=== PATIENT | female | born 1965 | race Hispanic/Latino ===

== ENCOUNTER 2020-08-02 09:26 | Emergency (ER) | payer OTHER ==
--- NOTE | 2020-08-02 10:06 | ER ---
Nurse's Notes [facility] Name: Mimi Hanson Age: 55 yrs Sex: Female : 1965 Arrival Date: 08/02/2020 Time: 09:37 Bed 18 Private MD: Diagnosis: Other serum reaction due to vaccination Presentation: 08/02 09:38 Chief complaint: EMS states: pt received 1st Covid vaccine yseterday at [facility]. Pt became bw short of breath last night and worsening this AM. Pt c/o body aches, headache, and SOB. All VSS stable on arrival. 02 100% on RA. Coronavirus screen: Client presents with at least one sign or symptom that may indicate coronavirus-19. Standard/surgical mask placed on the client. Ebola Screen: No symptoms or risks identified at this time. Initial Sepsis Screen: Does the patient meet any 2 criteria? No. Patient's initial sepsis screen is negative. Does the patient have a suspected source of infection? No. Patient's initial sepsis screen is negative. Risk Assessment: Do you want to hurt yourself or someone else? Patient reports no desire to harm self or others. Onset of symptoms was August 02, 2020. 09:38 Method Of Arrival: EMS: [facility] bw 09:38 Acuity: RADHA 3 bw Triage Assessment: 09:42 General: Appears in no apparent distress. uncomfortable, Behavior is calm, cooperative, bw appropriate for age. Pain: Complains of pain in head, back, shoulders, arms. Body aches. EENT: No deficits noted. No signs and/or symptoms were reported regarding the EENT system. Neuro: No deficits noted. Reports headache since Last night. Cardiovascular: No deficits noted. Respiratory: No deficits noted. Reports shortness of breath cough that is Airway is patent Breath sounds are clear bilaterally. Onset: The symptoms/episode began/occurred yesterday, the patient has mild shortness of breath. GI: No deficits noted. : No deficits noted. Derm: No deficits noted. No signs and/or symptoms reported regarding the dermatologic system. Musculoskeletal: No deficits noted. No signs and/or symptoms reported regarding the musculoskeletal system. 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 - Social history:: Smoking status: Patient denies any tobacco usage or history of. Screenin:45 Abuse screen: Denies threats or abuse. Nutritional screening: No deficits noted. Tuberculosis screening: No symptoms or risk factors identified. Fall Risk None identified. Assessment: 09:44 Reassessment: See triage assessment. bw 10:39 Reassessment: Patient appears in no apparent distress at this time. Patient and/or jd3 family updated on plan of care and expected duration. Pain level reassessed. Patient is alert, oriented x 3, equal unlabored respirations, skin warm/dry/pink. Patient states feeling better. Vital Signs: 09:38 BP 119 / 57; Pulse 76; Resp 16; Temp 98.0; Pulse Ox 100% on R/A; Weight 57.61 kg; bw Height 5 ft. 5 in. (165.10 cm); Pain 4/10; 10:40 BP 122 / 61; Pulse 70; Resp 15 S; Pulse Ox 99% on R/A; jd3 09:38 Body Mass Index 21.13 (57.61 kg, 165.10 cm) ED Course: 09:37 Patient arrived in ED. ss 09:38 Lisy Perry, NATALIE is Primary Nurse. bw 09:41 Triage completed. bw 09:42 Daniel Shaffer PA is PHCP. jr8 09:42 Preethi Christensen MD is Attending Physician. jr8 09:42 Arm band placed on right wrist. bw 09:45 Patient has correct armband on for positive identification. Bed in low position. Call light in reach. Side rails up X2. Pulse ox on. NIBP on. Warm blanket given. 09:45 No provider procedures requiring assistance completed. bw 10:39 Patient did not have IV access during this emergency room visit. jd3 Administered Medications: 10:23 Drug: Zofran (Ondansetron) 4 mg Route: PO; bw 10:39 Follow up: Response: No adverse reaction; Medication administered at discharge. jd3 10:23 Drug: Tylenol 1000 mg Route: PO; 10:39 Follow up: Response: No adverse reaction; Medication administered at discharge. jd3 Outcome: 10:06 Discharge ordered by . flakita 10:39 Discharged to home ambulatory, with family. jd3 10:39 Condition: stable 10:39 Discharge instructions given to patient, Instructed on discharge instructions, follow up and referral plans. medication usage, Demonstrated understanding of instructions, follow-up care, medications, Prescriptions given X 1. 10:40 Patient left the ED. jd3 Signatures: Melissa Aguirre RN RN Daniel Shaffer PA PA jrJesu Trimble RN RN jd3 Webb, Bethany, RN RN Corrections: (The following items were deleted from the chart) 09:44 09:42 LMP N/A - Irregular menses [facility] 09:46 09:44 Reassessment: See triage note. [facility]
--- NOTE | 2020-08-02 10:06 | EDPHYS ---
Physician Documentation [facility] Name: Mimi Hanson Age: 55 yrs Sex: Female : 1965 Arrival Date: 08/02/2020 Time: 09:37 Bed 18 Private MD: ED Physician Preethi Christensen HPI: 08/02 10:07 This 55 yrs old Female presents to ER via EMS with complaints of chills, jr8 nausea . 10:07 Patient stated that she received first dose of COVID-19 vaccine from [facility] system jr8 yesterday. Does not know which vaccine type it was. Today started to have headache, chills, nausea, fatigue, and felt mildly short of breath. Came in to ED for evaluation . Severity of symptoms: At their worst the symptoms were mild in the emergency department the symptoms are unchanged. The patient has not experienced similar symptoms in the past. It is unknown whether or not the patient has recently seen a physician. 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 - Social history:: Smoking status: Patient denies any tobacco usage or history of. ROS: 10:07 Eyes: Negative for injury, pain, redness, and discharge, Neck: Negative for injury, jr8 pain, and swelling, Cardiovascular: Negative for chest pain, palpitations, and edema, Back: Negative for injury and pain, MS/Extremity: Negative for injury and deformity, Skin: Negative for injury, rash, and discoloration. 10:07 Constitutional: Positive for body aches, chills, fatigue. 10:07 ENT: Positive for sore throat. 10:07 Respiratory: Positive for shortness of breath, Negative for cough, dyspnea on exertion, orthopnea, sputum production, wheezing. 10:07 Abdomen/GI: Positive for nausea, Negative for abdominal pain, vomiting, diarrhea. 10:07 Neuro: Positive for headache. Exam: 10:07 Constitutional: This is a well developed, well nourished patient who is awake, alert, jr8 and in no acute distress. Eyes: Pupils equal round and reactive to light, extra-ocular motions intact. Lids and lashes normal. Conjunctiva and sclera are non-icteric and not injected. Cornea within normal limits. Periorbital areas with no swelling, redness, or edema. ENT: Nares patent. No nasal discharge, no septal abnormalities noted. Tympanic membranes are normal and external auditory canals are clear. Oropharynx with no redness, swelling, or masses, exudates, or evidence of obstruction, uvula midline. Mucous membranes moist. Neck: Trachea midline, no thyromegaly or masses palpated, and no cervical lymphadenopathy. Supple, full range of motion without nuchal rigidity, or vertebral point tenderness. No Meningismus. Cardiovascular: Regular rate and rhythm with a normal S1 and S2. No gallops, murmurs, or rubs. Normal PMI, no JVD. No pulse deficits. Respiratory: Lungs have equal breath sounds bilaterally, clear to auscultation and percussion. No rales, rhonchi or wheezes noted. No increased work of breathing, no retractions or nasal flaring. Abdomen/GI: Soft, non-tender, with normal bowel sounds. No distension or tympany. No guarding or rebound. No evidence of tenderness throughout. Back: No spinal tenderness. No costovertebral tenderness. Full range of motion. Skin: Warm, dry with normal turgor. Normal color with no rashes, no lesions, and no evidence of cellulitis. MS/ Extremity: Pulses equal, no cyanosis. Neurovascular intact. Full, normal range of motion. Neuro: Awake and alert, GCS 15, oriented to person, place, time, and situation. Cranial nerves II-XII grossly intact. Motor strength 5/5 in all extremities. Sensory grossly intact. Cerebellar exam normal. Normal gait. Vital Signs: 09:38 BP 119 / 57; Pulse 76; Resp 16; Temp 98.0; Pulse Ox 100% on R/A; Weight 57.61 kg; bw Height 5 ft. 5 in. (165.10 cm); Pain 4/10; 10:40 BP 122 / 61; Pulse 70; Resp 15 S; Pulse Ox 99% on R/A; jd3 09:38 Body Mass Index 21.13 (57.61 kg, 165.10 cm) bw MDM: 09:42 Patient medically screened. jr8 10:03 Data reviewed: vital signs, nurses notes, and as a result, I will discharge patient. jr8 Data interpreted: Pulse oximetry: on room air is 100 %. Interpretation: normal. Counseling: I had a detailed discussion with the patient and/or guardian regarding: the historical points, exam findings, and any diagnostic results supporting the discharge/admit diagnosis, the need for outpatient follow up, a family practitioner, to return to the emergency department if symptoms worsen or persist or if there are any questions or concerns that arise at home. ED course: Discussed with patient that VS are stable. Most likely experiencing normal side effects to the vaccine as she was administered it yesterday. Would wait and treat symptoms for next 48 hours. If she were to worsen or not improve to come back at that time for reevaluation. Patient good with this . Administered Medications: 10:23 Drug: Zofran (Ondansetron) 4 mg Route: PO; bw 10:39 Follow up: Response: No adverse reaction; Medication administered at discharge. jd3 10:23 Drug: Tylenol 1000 mg Route: PO; bw 10:39 Follow up: Response: No adverse reaction; Medication administered at discharge. jd3 Disposition: 19:41 Co-signature as Attending Physician, Preethi Christensen MD. ma2 Disposition: 08/02/20 10:06 Discharged to Home. Impression: Other serum reaction due to vaccination. - Condition is Stable. - Discharge Instructions: COVID-19. - Prescriptions for Zofran 4 mg Oral Tablet - take 1 tablet by ORAL route every 12 hours As needed; 20 tablet. - Medication Reconciliation Form, Thank You Letter, Antibiotic Education, Prescription Opioid Use form. - Follow up: Private Physician; When: 2 - 3 days; Reason: Recheck today's complaints, Continuance of care, Re-evaluation by your physician. - Problem is new. - Symptoms have improved. - Notes: Tylenol and/or motrin for bodyaches, chills, fevers Drink plenty of fluids Rest Signatures: Daniel Shaffer PA PA jr8 Jesu Gonzalez RN RN jd3 Alzahri, Mohammad, MD MD ma2 Lisy Perry RN RN bw Corrections: (The following items were deleted from the chart) 10:40 10:06 08/02/2020 10:06 Discharged to Home. Impression: Other serum reaction due to jd3 vaccination. Condition is Stable. Forms are Medication Reconciliation Form, Thank You Letter, Antibiotic Education, Prescription Opioid Use. Follow up: Private Physician; When: 2 - 3 days; Reason: Recheck today's complaints, Continuance of care, Re-evaluation by your physician. Problem is new. Symptoms have improved. jr8
[2020-08-02] MEDS ORDERED: ONDANSETRON 4 MG (ODT) TAB ONE (10:37)
[2020-08-02] MEDS ORDERED: ACETAMINOPHEN 500 MG TAB ONE (10:37)
[2020-08-02 11:01] VITALS: BP 119/57; TEMP 98; O2SAT 100
== END 2020-08-02 10:40 | disposition home or self-care (01) ==
LOC: ER 09:26
DX: T80.62XA Other serum reaction due to vaccination, initial encounter (principal); T50.B95A Adverse effect of other viral vaccines, initial encounter; I10 Essential (primary) hypertension
CPT/HCPCS: 99284

== ENCOUNTER 2021-08-03 23:33 | Emergency (ER) | payer OTHER ==
--- OUTSIDE RECORDS SUMMARY | 2021-08-03 23:35 | XMS REPORT | Continuity of Care Document ---
:1965 Author Organization [facility] t Address [address] [place] [address] [address]. [address] [place] [address] Care Team Providers Name Role Phone LENIN LEWIS Primary Care Physician Unavailable Ritu CALDERON S Attending Clinician Rosie CUENCA Attending Clinician Unavailable Rosie CUENCA Admitting Clinician Unavailable Payers Payer Name Policy Type Policy Number Effective Date Expiration Date S ource Problems Condition Condition Condition Status Onset Resolution Last Treating Co mments Source Name Details Category Date Date Treatment Clinician Date No known No known Disease Unive rs active active ity of problems problems [facility] Allergies, Adverse Reactions, Alerts Allergy Allergy Status Severity Reaction(s) Onset Inactive Treating Comm ents Source Name Type Date Date Clinician NO KNOWN Drug Active Univers ALLERGIE Class it of S [facility] Social History Social Habit Start Date Stop Date Quantity Comments [facility] Smoking Status Start Date Stop Date Source Unknown if ever smoked [facility] y [facility] Medications Ordered Filled Start Stop Current Ordering Indication Dosage Frequency Signature Comments Components Source Medication Medication Date Date Medication? Clinician (SIG) Name Name No known No Univers medications [facility] Vital Signs Vital Name Observation Time Observation Value Comments Source Systolic blood 2019-08-11 18:00:00 135 mm[Hg] Univer sity of pressure [facility] Diastolic blood 2019-08-11 18:00:00 70 mm[Hg] Unive rsity of [facility] Heart rate 2019-08-11 18:00:00 64 /min Universi ty [facility] Respiratory rate 2019-08-11 18:00:00 12 /min [facility] Oxygen saturation in 2019-08-11 18:00:00 100 /min [facility] Arterial blood by [facility] Pulse oximetry Branch Body temperature 2019-08-11 16:17:00 37.11 Barbara [facility] Body height 2019-08-11 16:17:00 152.4 cm [facility] Body weight 2019-08-11 16:17:00 58.06 kg [facility] BMI 2019-08-11 16:17:00 25.00 kg/m2 [facility] Procedures Procedure Date / Time Performing Clinician Source Performed XR CHEST 1 VW 2019-08-11 16:56:28 Alfredo Cuenca [facility] TROPONIN I 2019-08-11 16:44:00 Alfredo Cuenca [facility] COMP. METABOLIC PANEL 2019-08-11 16:44:00 Alfredo Cuenca [facility] ([id number]) [facility] CBC WITH DIFFERENTIAL 2019-08-11 16:44:00 Alfredo Cuenca [facility] EKG-12 LEAD 2019-08-11 16:36:30 Alfredo Cuenca [facility] NOTICE OF PRIVACY 2019-08-11 16:10:29 Doctor Unassigned, No Univ [facility] PRACTICES Name Medical Branch CONSENT/REFUSAL FOR 2019-08-11 16:10:12 [facility], [facility] Name [facility] Encounters Start End Encounter Admission Attending Care Care Encounter Source Date/Time Date/Time Type Type Clinicians Facility Department ID 2019-08-11 2019-08-11 Emergency [facility] [id number] Univers 11:12:26 13:44:00 Alfredo Velez [facility] [id number] [facility] [id number] [facility] [id number] [facility] 084 Branch 2019-08-11 2019-08-11 Emergency X [facility] ERT [id number] Univers 11:12:26 13:44:00 ALFREDO [facility] Results Test Description Test Time Test Comments Results Result Comments Source VITAMIN B-12 2021-07-12 04:44:18 Test Item Value Reference Range Interpretation Comme nts VITAMIN B-12 (test code = 2840) >2000 PG/ML 200-950 H [id number] 03:17:13 Test Item Value Reference Range Interpretation Comments RPR RESULT (test NON-REACTIVE NON-REACTIVE code = 3501) RPR TITER (test NOT INDIC. NOT INDIC. UNLES S OTHERWISE code = 3500) TITER INDICATED, ALL TESTING PERFORMED [facility]. [address] [place] [address] 78 4 LABORATORY DI GLENNA: Oswald OLIVARES [id number] CAP ACCREDITATION N O. [id number] CBC W/AUTO DIFF WITH [id number] 02:38:15 Test Item Value Reference Range Interpretation Comments WBC (test code = 4.8 K/UL 3.5-11.0 1001) RBC (test code = 4.17 M/UL 3.80-5.40 1002) HEMOGLOBIN (test code 13.1 G/DL 11.5-15.5 = 1003) HEMATOCRIT (test code 37.7 % 34.0-45.0 = 1004) MCV (test code = 90.4 fL 80.0-99.0 1005) MCH (test code = 31.4 PG 25.0-33.0 1006) MCHC (test code = 34.7 G/DL 31.0-36.0 1007) RDW (test code = 12.8 % 11.5-15.0 1038) NEUTROPHILS (test 37.3 % code = 1008) LYMPHOCYTES (test 50.5 % code = 1010) MONOCYTES (test code 8.9 % = 1011) EOSINOPHILS (test 2.1 % code = 1012) BASOPHILS (test code 1.0 % = 1013) IMMATURE GRANULOCYTES 0.2 % (test code = 1036) NUCLEATED RBCS (test 0.0 /100 See_Comment [Autom ated code = 1065) WBC'S message] The sy stem which generated this result transmitted reference range : 0.0. The refere nce range was not u sed to interpret th is result as normal/abnormal . PLATELET COUNT (test 355 K/UL 130-400 code = 1015) ABSOLUTE NEUTROPHILS 1.79 K/UL 1.50-7.50 (test code = 1066) ABSOLUTE LYMPHOCYTES 2.43 K/UL 1.00-4.00 (test code = 1067) ABSOLUTE MONOCYTES 0.43 K/UL 0.20-1.00 (test code = 1068) ABSOLUTE EOSINOPHILS 0.10 K/UL 0.00-0.50 (test code = 1040) ABSOLUTE BASOPHILS 0.05 K/UL 0.00-0.20 (test code = 1069) ABS IMMATURE 0.01 K/UL 0.00-0.10 GRANULOCYTES (test code = 1020) ABS NUCLEATED RBCS 0.00 K/UL 0.00-0.11 (test code = 45793) LIPID [id number] 03:57:42 Test Item Value Reference Range Interpretation Comments CHOLESTEROL (test 288 MG/DL <200 H code = 2210) TRIGLYCERIDES (test 122 MG/DL <150 code = 2232) HDL CHOLESTEROL (test 103 MG/DL >39 code = 2220) CALC LDL CHOL (test 161 MG/DL <100 H NOTE: C ALCULATED LDL code = 2237) IS BASED ON RACHELL-YUEN METHOD WHICHINCLUDES ADJUSTABLE TRIGLYCERIDE:VL DL CHOLESTEROL RAT IO.THIS FACTOR VARIES B Y MEASURED TRIGLY CERIDE AND NON-HDLCHOL ESTEROL CONCENTRATIONS WITH INCREASED CALCU LATED LDL SEENIN HIGH ER TRIGLYCERIDE OR LOWER NON-HDL SPECIME NS. FOR MOREINFORMATION , SEE CLIENT ANNOUNCE MENT AT [email or web address] RATIO LDL/HDL 1.56 RATIO <3.22 (test code = 2238) COMPREHENSIVE METABOLIC [id number] 03:57:42 Test Item Value Reference Range Interpretation Comments GLUCOSE (test code = 99 MG/DL 70-99 2216) BUN (test code = 15 MG/DL 10-27) CREATININE (test 0.77 MG/DL 0.60-1.30 code = 2214) eGFR (2020 CKD-EPI) 92 >60 (test code = 03524) ML/MIN/1.73 CALC BUN/CREAT (test 19 RATIO 11-04 code = 2235) SODIUM (test code = 141 MEQ/L 844-351 5210) POTASSIUM (test code 4.5 MEQ/L 3.5-5.4 = 2227) CHLORIDE (test code 103 MEQ/L 95-107 = 2214) CARBON DIOXIDE (test 24 MEQ/L 19-31 code = 2206) CALCIUM (test code = 10.0 MG/DL 8.5-10.5 2208) PROTEIN, TOTAL (test 7.8 G/DL 6.1-8.3 code = 2229) ALBUMIN (test code = 4.8 G/DL 3.5-5.2 2200) CALC GLOBULIN (test 3.0 G/DL 1.9-3.7 code = 2240) CALC A/G RATIO (test 1.6 RATIO 1.0-2.6 code = 2234) BILIRUBIN, TOTAL 0.5 MG/DL See_Comment [Automated message] (test code = 2206) The [employer] which generated this result transmitted ref erence range: <=1.2. T he reference range was not used to int erpret this result as normal/abnormal . ALKALINE PHOSPHATASE 63 U/L 40-133 (test code = 2203) AST (test code = 20 U/L 9-40 2217) ALT (test code = 25 U/L 5-40 UNLE SS 2218) OTHERWISE INDIC ATED, ALL TESTING PER FORMED ATCLINICAL PATH [facility]. [address] [place] [address] LABORATORY DIRE CTOR: SHAMA SORIANO M.D. CLIA NUMBER [id number] CAP ACCREDITATION N O. [id number] TROPONIN [id number] 17:36:00 Test Item Value Reference Range Interpretation Comments TROPONIN I (test 0.003 ng/mL See_Comment [Automated code = 2253210667) message] The system which generated this result transmitted reference range : <=0.034. The reference range was not used to interpret this result as normal/abnormal . FRANKI (test code = Equal or Less than FRANKI) 0.034 ng/ml---Normal ?Note: Cardiac troponin begins to rise 3-4 hours after the onset of ischemia. Repeat in 4-6 hours if the sample was drawn within 3-4 hours of the onset of the symptom and found normal. Between 0.035 and 0.120 ng/mL--- Borderline. Questionable myocardial injury or necrosis ? ?Note: Serial measurement may be necessary to confirm or exclude the diagnosis of myocardial injury or necrosis; Clinical correlation (symptoms, EKGs, imaging studies, and others) required; Repeat in 4-6 hours if clinically indicated. ? Equal or Higher than 0.121 ng/mL---Abnormal. Myocardial Injury or Necrosis Likely ? Biotin has been reported to cause a negative bias, interpret results relative to patient's use of biotin. ? Lab Interpretation Normal (test code = 71437-4) [facility] [id number] 17:31:29 No acute cardiopulmonary abnormality Preliminary Report Dictated by Resident: Douglas Marcelo MD., have reviewed this study and agree with the abovereport.EXAM: XR CHEST 1 VW HISTORY: 54 years-old; Female; Chest PAin COMPARISON: None FINDINGS: Lungs/Pleura: The lungs are clear with no focal consolidation. There is nopleural effusion or pneumothorax. Heart/Mediastinum: The cardiomediastinal silhouette is normal. No acute osseous structure abnormality. [facility], Radiant Results Inft User - 08/11/2019 12:32 PM CDTEXAM: XR CHEST 1 VWHISTORY: 54 years-old; Female; Chest PAin COMPARISON: No neFINDINGS:Lungs/Pleura: The lungs are clear with no focal consolidation. There is nopleural effusion or pneumothorax.Heart/Mediastinum: The cardiomediastinal silhouette is normal.No acute osseous structure abnormality.IMPRESSIONNo acute cardiopulmonary abnormalityPreliminary Report Dictated by Resident: Douglas Ortiz MD., have reviewed this study and agree with the abovereport.[facility] ([id number]) 2019-08-11 17:25:00 Test Item Value Reference Range Interpretation Comments NA (test code = 140 mmol/L 135-145 4406275556) K (test code = 4.1 mmol/L 3.5-5 3095356550) CL (test code = 105 mmol/L 98-108 8895716440) CO2 TOTAL (test code = 25 mmol/L 23-31 5958142070) AGAP (test code = 2-16 3693497563) BUN (test code = 12 mg/dL 7-23 9818758570) GLUCOSE (test code = 98 mg/dL 70-110 2938880997) CREATININE (test code 0.81 mg/dL 0.5-1.04 = 1705027053) TOTAL BILI (test code 0.8 mg/dL 0.1-1.1 = 3539851473) CALCIUM (test code = 9.8 mg/dL 8.6-10.6 3220954963) T PROTEIN (test code = 7.7 g/dL 6.3-8.2 5070169780) ALBUMIN (test code = 4.8 g/dL 3.5-5 1467481631) ALK PHOS (test code = 72 U/L 34-122 3027466084) ALTv (test code = 23 U/L 5-35 1742-6) AST(SGOT) (test code = 26 U/L 13-40 9184249820) eGFR Calculation mL/min/1.73m2 (Non-) (test code = 0929697768) eGFR Calculation mL/min/1.73m2 () (test code = 8415343025) FRANKI (test code = FRANKI) Association of Glomerular Filtration Rate (GFR) and Staging of Kidney Disease* + -+ + ---+| GFR (mL/min/1.73 m2) ?| With Kidney Damage ?| ?Without Kidney Damage+ -------+ ------+ ---------+| ?>90 ?| ?Stage one ?| ? Normal ?+ --+ -+ ----+| ?60-89 ?| ?Stage two ?| ? Decreased GFR ? + -+ + ---+| ?30-59 ?| ?Stage three ?| ? Stage three ? + -+ + ---+| ?15-29 ?| ?Stage four ? | ? Stage four ?+ --+ -+ ----+| ?<15 (or dialysis) ? ?| ?Stage five ? | ? Stage five ?+ --+ -+ ----+ *Each stage assumes the associated GFR level has been in effect for at least three months. ?Stages 1 to 5, with or without kidney disease, indicate chronic kidney disease. Notes: Determination of stages one and two (with eGFR >59mL/min/1.73 m2) requires estimation of kidney damage for at least three months as defined by structural or functional abnormalities of the kidney, manifested by either:Pathological abnormalities or Markers of kidney damage (including abnormalities in the composition of the blood or urine or abnormalities in imaging tests). [facility] WITH [id number] 17:05:00 Test Item Value Reference Range Interpretation Comments WBC (test code = See_Comment [Automated message] 6690-2) The system [employer] generated this result transmitted ref erence range: 4.30 - 1 1.10 10*3/?L. The re ference range was not u sed to interpret this result as normal/abnor mal. RBC (test code = See_Comment [Automated message] 789-8) The system [employer] generated this result transmitted ref erence range: 3.93 - 5 .25 10*6/?L. The re ference range was not u sed to interpret this result as normal/abnor mal. HGB (test code = 13.5 g/dL 11.6-15 718-7) HCT (test code = 40.4 % 35.7-45.2 4544-3) MCV (test code = 93.7 fL 80.6-95.5 787-2) MCH (test code = 31.3 pg 25.9-32.8 785-6) MCHC (test code = 33.4 g/dL 31.6-35.1 786-4) RDW-SD (test code 43.3 fL 39-49.9 = 68479-9) RDW-CV (test code 12.4 % 12-15.5 = 788-0) PLT (test code = See_Comment [Automated message] 777-3) The system [employer] generated this result transmitted ref erence range: 166 - 35 8 10*3/?L. The re ference range was not u sed to interpret this result as normal/abnor mal. MPV (test code = 10.3 fL 9.5-12.9 64285-3) NRBC/100 WBC (test See_Comment [Automat ed message] code = 1851992994) The [employer] which generated this result transmitted ref erence range: 0.0 - 10 .0 /100 WBCs. The refer ence range was not u sed to interpret this result as normal/abnor mal. NRBC x10^3 (test <0.01 See_Comment [Automated message] code = 0362348268) The syste m which generated this result transmitted ref erence range: 10*3/?L. The reference range was not used to interpr et this result as normal/abnormal . GRAN MAT (NEUT) % 44.4 % (test code = 770-8) IMM GRAN % (test 0.20 % code = 0521492606) LYMPH % (test code 44.1 % = 736-9) MONO % (test code 9.3 % = 5905-5) EOS % (test code = 1.2 % 713-8) BASO % (test code 0.8 % = 706-2) GRAN MAT 2.15 10*3/uL 1.88-7.09 x10^3(ANC) (test code = 6187425310) IMM GRAN x10^3 <0.03 0-0.06 (test code = 1909224619) LYMPH x10^3 (test 2.14 10*3/uL 1.32-3.29 code = 731-0) MONO x10^3 (test 0.45 10*3/uL 0.33-0.92 code = 742-7) EOS x10^3 (test 0.06 10*3/uL 0.03-0.39 code = 711-2) BASO x10^3 (test 0.04 10*3/uL 0.01-0.07 code = 704-7) [facility]"
[2021-08-04] MEDS ORDERED: ONDANSETRON 4 MG/2 ML VIAL ONE (00:42)
[2021-08-04 00:55] LABS: Absolute Lymphocytes (CBC) 2.4 K/uL (0.7-4.9); Hematocrit 35.6 % (36.0-45.0); Lymphocytes % 55.4 % (15.3-44.8); RBC Red Blood Cell Count 3.79 M/uL (3.86-4.86)
[2021-08-04 00:56] LABS: Protime INR 0.93
[2021-08-04 01:04] LABS: ALT/SGPT 36 U/L (12-78); AST/SGOT 23 U/L (15-37); Albumin 3.6 g/dL (3.4-5.0); Alkaline Phosphatase 88 U/L (45-117); BUN Blood Urea Nitrogen 11 mg/dL (7-18); Bicarbonate 22 mmol/L (21-32); Bilirubin Total 0.2 mg/dL (0.2-1.0); Glucose Level 115 mg/dL (74-106); Lipase 155 U/L (73-393); Magnesium 2.1 mg/dL (1.8-2.4); Potassium 4.1 mmol/L (3.5-5.1); Protein, Total 7.1 g/dL (6.4-8.2); Sodium Level 144 mmol/L (136-145); Troponin High Sensitivity 3.1 pg/mL (<58.9)
[2021-08-04 01:15] LABS: Bilirubin Direct < 0.1 mg/dL (0-0.2)
[2021-08-04] MEDS ORDERED: NA CHLORIDE 0.9% 1,000 ML ONE (03:09)
--- NOTE | 2021-08-04 03:29 | ER ---
Nurse's Notes [facility] Name: Mimi Hanson Age: 56 yrs Sex: Female : 1965 Arrival Date: 08/03/2021 Time: 23:37 Bed 15 Private MD: Diagnosis: Diarrhea, unspecified;Syncope;Alcohol use, unspecified with intoxication Presentation: 08/04 00:05 Chief complaint: EMS states: syncopal episode. Coronavirus screen: Vaccine status: saurabh Patient reports receiving the 2nd dose of the covid vaccine. Ebola Screen: Patient negative for fever greater than or equal to 101.5 degrees Fahrenheit, and additional compatible Ebola Virus Disease symptoms Patient denies exposure to infectious person. Patient reports travel to Ebola-affected area in the 21 days before illness onset. Patient reports having traveled to: [place]. 00:05 Method Of Arrival: EMS: [facility] saurabh 00:08 Initial Sepsis Screen: Does the patient meet any 2 criteria? No. Patient's initial saurabh sepsis screen is negative. Does the patient have a suspected source of infection? No. Patient's initial sepsis screen is negative. Risk Assessment: Do you want to hurt yourself or someone else? Patient reports no desire to harm self or others. Onset of symptoms was August 04, 2021. 00:08 Acuity: RADHA 3 saurabh Triage Assessment: 00:11 General: Appears in no apparent distress. Behavior is calm, cooperative, emotionally saurabh labile at times . Pain: Complains of pain in neck. [employer]: 00:12 LMP N/A - Post-menopause saurabh Historical: - Allergies: 00:08 No Known Allergies; saurabh - Home Meds: 00:08 lisinopril 10 mg Oral tab 1 tab once daily for Hypertension [Active]; "dolor" container saurabh that is illegible [Active]; divalproex oral [Active]; escitalopram oxalate oral [Active]; - PMHx: 00:08 Hypertension; saurabh - Immunization history:: Client reports receiving the 2nd dose of the Covid vaccine. - Social history:: Smoking status: Patient denies any tobacco usage or history of. Patient uses alcohol, prior to arrival, per her report, 3 glasses of wine. Screenin:17 Abuse screen: Denies threats or abuse. Denies injuries from another. Nutritional saurabh screening: No deficits noted. Tuberculosis screening: No symptoms or risk factors identified. Fall Risk None identified. Assessment: 00:14 Reassessment: Patient appears in no apparent distress at this time. Recv'd pt to room saurabh 15 on a backboard with a c collar in place. . Pain: Complains of pain in neck. GI: Reports lower abdominal pain, diarrhea, nausea, distended abdomen. 00:32 Reassessment: The pt was removed by the provider and 3 additional staff. She was log saurabh rolled and cspine was maintained. The pt's s.o. insisted that she use the bedpan. He smells heavily of ETOH, as well as, the pt and yet another friend that has now arrived. The provider was informed and he was asked to help her remove her jeans, as she did not want them cut off. He then poured the urine in the sink, in the room, prior to me helping with placing her on the bedpan. He and she acknowledged understanding of risks associated with a possible fx to her neck, as she c/o neck pain. 01:20 Reassessment: The pt's daughter is at bedside and the pt has asked about the cc, but I saurabh again explained to the pt and the daughter the importance of keeping it on, until her c spine is cleared. 01:34 Reassessment: Pt taken to CT her daughter is waiting in the room. saurabh 03:11 Reassessment: The pt's c-spine has been cleared and the cc was taken off. She is saurabh sleeping with clear, audible breaths. Her daughter remains at bedside. 03:32 Reassessment: The provider has dc'd the pt and told the pt and his daughter that if she saurabh cannot give a stool sample, that would be "okay" as he is prescribing abx for her N/V/D, per her report, upon returning from [place]. The CT scan was negative for any obstruction, and the pt's daughter reports that "it's normal" for her mother's stomach to protrude and to be slightly firm. The CT reflects the same. She is sleeping, snoring softly, as IVF infuses. 04:53 Reassessment: The pt's daughter went to get the pt's from the parking lot saurabh approximately 20 minutes ago, but has not returned. The pt's dc paperwork was taken by the daughter and the pt is sleeping on the stretcher. I am awaiting the pt's to return to take her home. Vital Signs: 00:05 BP 109 / 79; Pulse 72; Resp 16; Temp 98.5; Pulse Ox 100% on R/A; Pain 7/10; saurabh 00:12 BP 109 / 79; Pulse 87; Resp 18; Temp 98.5; Pulse Ox 100% on R/A; Pain 5/10; saurabh 01:19 BP 92 / 62; Pulse 92; Resp 16; Pulse Ox 99% on R/A; saurabh 03:01 BP 99 / 68; Pulse 88; Resp 20; Pulse Ox 96% on R/A; Pain 0/10; saurabh 04:33 BP 98 / 66; Pulse 82; Resp 16; Pulse Ox 98% on R/A; Pain 0/10; saurabh ED Course: 08/03 23:37 Patient arrived in ED. mw2 23:38 Mendoza Schulz PA is PHCP. cp 23:38 Juan Cavazos MD is Attending Physician. cp 08/04 00:05 Yue Guo, NATALIE is Primary Nurse. saurabh 00:08 Triage completed. saurabh 00:13 Arm band placed on. saurabh 00:18 Maintain EMS IV. Dressing intact. Good blood return noted. Site clean \\T\\ dry. saurabh 00:31 ETOH Level Sent. saurabh 00:31 Lipase Sent. saurabh 00:31 Ptt, Activated Sent. saurabh 00:32 Basic Metabolic Panel Sent. saurabh 00:32 CBC with Diff Sent. saurabh 00:32 LFT's Sent. saurabh 00:32 Troponin HS Sent. saurabh 00:32 PT-INR Sent. saurabh 00:32 Magnesium Sent. saurabh 00:38 BB removal. saurabh 00:55 X-ray completed. Portable x-ray completed in exam room. Patient tolerated procedure mh1 well. 01:14 XRAY Chest (1 view) In Process Unspecified. EDMS 01:35 Patient has correct armband on for positive identification. Placed in gown. Bed in low saurabh position. Call light in reach. Side rails up X2. Adult w/ patient. school lunch monitor on. Pulse ox on. NIBP on. Sitter at bedside. 02:01 CT Head C Spine In Process Unspecified. EDMS 02:01 CT Abd/Pelvis - IV Contrast Only In Process Unspecified. EDMS 02:01 CT Chest For PE Angio In Process Unspecified. EDMS 04:23 Urine Microscopic Only Sent. saurabh 04:32 intact, bleeding controlled, No redness/swelling at site. Pressure dressing applied. saurabh Administered Medications: 00:42 Drug: Zofran (Ondansetron) 4 mg Route: IVP; Site: right antecubital; saurabh 03:07 Drug: NS 0.9% 1000 ml Route: IV; Rate: 1 bolus; Site: right antecubital; saurabh 03:49 Follow up: Response: No adverse reaction; IV Intake: 1000ml saurabh Intake: 03:49 IV: 1000ml; Total: 1000ml. saurabh Outcome: 01:35 Condition: stable saurabh 03:29 Discharge ordered by MD. cp 04:32 Discharged to home ambulatory, with family. saurabh 04:32 Discharge instructions given to patient, Instructed on discharge instructions, follow up and referral plans. medication usage, Demonstrated understanding of instructions, follow-up care, medications, Prescriptions given X 1. 05:30 Patient left the ED. saurabh Signatures: Dispatcher [employer] EDMS Lashonda Antonio mh1 Mendoza Schulz PA PA cp [place], MyKena mw2 Yue Guo, RN RN saurabh
--- NOTE | 2021-08-04 03:29 | EDPHYS ---
Physician Documentation [facility] Name: Mimi Hansno Age: 56 yrs Sex: Female : 1965 Arrival Date: 08/03/2021 Time: 23:37 Bed 15 Private MD: ED Physician Juan Cavazos HPI: 08/04 00:05 This 56 yrs old Female presents to ER via EMS with complaints of Syncope. cp 00:05 The patient has experienced syncope, lost consciousness. cp 00:05 Duration: This was a single episode, that lasted an unknown period of time. Associated cp injury: Neck: pain. 00:08 The patient presents to the emergency department with diarrhea, that is continuous, cp abdominal pain, of the abdomen diffusely, described as constant, and does not radiate, abdominal distension. Onset: The symptoms/episode began/occurred 6 day(s) ago. 00:08 Possible causes: travel, recently returned from [place] 2 days ago. 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 - Social history:: Smoking status: Patient denies any tobacco usage or history of. Patient uses alcohol, prior to arrival, per her report, 3 glasses of wine. ROS: 00:10 Constitutional: Negative for body aches, chills, fever, poor PO intake. cp 00:10 Eyes: Negative for injury, pain, redness, and discharge. cp 00:10 ENT: Negative for drainage from ear(s), ear pain, sore throat, difficulty swallowing, difficulty handling secretions. 00:10 Cardiovascular: Negative for chest pain, palpitations. 00:10 Respiratory: Negative for cough, shortness of breath, wheezing. 00:10 Abdomen/GI: Positive for abdominal pain, nausea, vomiting, and diarrhea, abdominal distension, Negative for constipation. 00:10 Neuro: Positive for syncope, Negative for altered mental status, headache, weakness. 00:10 All other systems are negative. Exam: 00:15 Constitutional: The patient appears in no acute distress, alert, awake, cp non-diaphoretic, non-toxic, well developed, well nourished, uncomfortable. 00:15 Head/Face: Normocephalic, atraumatic. cp 00:15 Eyes: Periorbital structures: appear normal, Pupils: equal, round, and reactive to light and accomodation, Extraocular movements: intact throughout, Conjunctiva: normal, no exudate, no injection, Sclera: no appreciated abnormality, Lids and lashes: appear normal, bilaterally. 00:15 ENT: External ear(s): are unremarkable, Nose: is normal, Mouth: Lips: moist, Oral mucosa: pink and intact, moist, Posterior pharynx: Airway: no evidence of obstruction, patent. 00:15 Neck: C-spine: C-collar placed TELERADIOLOGIST, Back board TELERADIOLOGIST vertebral tenderness, that is mild, appreciated at C4 and C5. 00:15 Chest/axilla: Inspection: normal, Palpation: is normal, no crepitus, no tenderness. 00:15 Cardiovascular: Rate: normal, Rhythm: regular, Edema: is not appreciated, JVD: is not appreciated. 00:15 Respiratory: the patient does not display signs of respiratory distress, Respirations: normal, no use of accessory muscles, no retractions, labored breathing, is not present, Breath sounds: are clear throughout, no decreased breath sounds, no stridor, no wheezing. 00:15 Abdomen/GI: Inspection: distension, that is moderate, in the abdomen diffusely, Bowel sounds: active, all quadrants, Palpation: soft, in all quadrants, mild abdominal tenderness, in all quadrants. 00:15 Back: CVA tenderness, is absent, vertebral tenderness, is not appreciated. cp 00:15 Musculoskeletal/extremity: Exam is negative for decreased range of motion, deformity, cp injury. 00:15 Skin: cellulitis, is not appreciated, no rash present. 00:15 Neuro: Orientation: to person, place \\T\\ time. Mentation: able to follow commands, Motor: moves all fours, strength is normal, Sensation: no obvious gross deficits. 00:37 ECG was reviewed by the Attending Physician. cp Vital Signs: 00:05 BP 109 / 79; Pulse 72; Resp 16; Temp 98.5; Pulse Ox 100% on R/A; Pain 7/10; saurabh 00:12 BP 109 / 79; Pulse 87; Resp 18; Temp 98.5; Pulse Ox 100% on R/A; Pain 5/10; saurabh 01:19 BP 92 / 62; Pulse 92; Resp 16; Pulse Ox 99% on R/A; saurabh 03:01 BP 99 / 68; Pulse 88; Resp 20; Pulse Ox 96% on R/A; Pain 0/10; saurabh 04:33 BP 98 / 66; Pulse 82; Resp 16; Pulse Ox 98% on R/A; Pain 0/10; saurabh MDM: 08/03 23:58 Patient medically screened. cp 08/04 03:28 Data reviewed: vital signs, nurses notes, lab test result(s), EKG, radiologic studies, cp CT scan. 03:28 Differential diagnosis: gastritis, cholecystitis, pancreatitis, diverticulitis, viral cp gastroenteritis, gastroenteritis. Test interpretation: by ED physician or midlevel provider: ECG, plain radiologic studies. Counseling: I had a detailed discussion with the patient and/or guardian regarding: the historical points, exam findings, and any diagnostic results supporting the discharge/admit diagnosis, lab results, radiology results, the need for outpatient follow up, a family practitioner, to return to the emergency department if symptoms worsen or persist or if there are any questions or concerns that arise at home. Response to treatment: the patient's symptoms have markedly improved after treatment, patient is well hydrated. and as a result, I will discharge patient. Special discussion: Based on the patient's Hx, exam, and Dx evaluation, there is no indication for emergent surgery or inpatient Tx. It is understood by the patient/guardian that if the Sx's persist or worsen they need to return immediately for re-evaluation. 08/03 23:58 Order name: Basic Metabolic Panel; Complete Time: 02:24 cp 08/04 02:24 Interpretation: Normal except: CL 113; GLUC 115; GFR 61; CA 7.8. cp 08/03 23:58 Order name: CBC with Diff; Complete Time: 01:04 cp 08/04 01:05 Interpretation: Normal except: RBC 3.79; HCT 35.6; MCV 93.9; SHAMIKA% 35.0; LYM% 55.4; NEUT cp A 1.5. 08/03 23:58 Order name: LFT's; Complete Time: 02:24 cp 08/04 02:24 Interpretation: Normal except: A/G 1.0. cp 08/03 23:58 Order name: Magnesium; Complete Time: 02:24 cp 08/03 23:58 Order name: PT-INR; Complete Time: 01:04 cp 08/03 23:58 Order name: Troponin HS; Complete Time: 02:24 cp 08/04 02:25 Interpretation: Within normal limits: Troponin HS 3.1. cp 08/03 23:58 Order name: Ptt, Activated; Complete Time: 01:04 cp 08/03 23:58 Order name: Urine Microscopic Only cp 08/03 23:58 Order name: ETOH Level; Complete Time: 01:04 cp 08/04 02:28 Interpretation: Abnormal: ETOH 257. cp 08/03 23:58 Order name: XRAY Chest (1 view) cp 08/03 23:58 Order name: Cardiac monitoring; Complete Time: 00:31 cp 08/03 23:58 Order name: EKG - Nurse/Tech; Complete Time: 00:31 cp 08/03 23:58 Order name: IV Saline Lock; Complete Time: 00:32 cp 08/03 23:58 Order name: Labs collected and sent; Complete Time: 00:32 cp 08/03 23:58 Order name: O2 Per Protocol; Complete Time: 00:32 cp 08/03 23:58 Order name: O2 Sat Monitoring; Complete Time: 00:32 cp 08/03 23:58 Order name: Urine Dipstick-Ancillary (obtain specimen); Complete Time: 04:24 cp 08/03 23:58 Order name: CT Head C Spine cp 08/03 23:58 Order name: CT Abd/Pelvis - IV Contrast Only cp 08/03 23:58 Order name: Lipase; Complete Time: 02:24 cp 08/04 01:11 Order name: CT Chest For PE Angio cp 08/04 04:13 Order name: Urine Dipstick-Ancillary EDMS EC:37 Rate is 74 beats/min. Rhythm is regular. [place] interval is normal. QRS interval is cp prolonged at 124 msec. QT interval is normal. T waves are Inverted in leads aVR, V2, V3. Interpreted by me. Reviewed by me. Administered Medications: 00:42 Drug: Zofran (Ondansetron) 4 mg Route: IVP; Site: right antecubital; saurabh 03:07 Drug: NS 0.9% 1000 ml Route: IV; Rate: 1 bolus; Site: right antecubital; saruabh 03:49 Follow up: Response: No adverse reaction; IV Intake: 1000ml saurabh Disposition: 06:57 Co-signature as Attending Physician, Juan Cavazos MD. [email or web address] Disposition Summary: 08/04/21 03:29 Discharge Ordered Location: Home cp Problem: new cp Symptoms: have improved cp Condition: Stable cp Diagnosis - Diarrhea, unspecified cp - Syncope cp - Alcohol use, unspecified with intoxication cp Followup: cp - With: Private Physician - When: 1 - 2 days - Reason: Recheck today's complaints Discharge Instructions: - Discharge Summary Sheet cp - Alcohol Intoxication cp - Food Choices to Help Relieve Diarrhea, Adult cp - Diarrhea, Adult cp - Syncope cp - Food Poisoning and Traveling cp Forms: - Medication Reconciliation Form cp - Thank You Letter cp - Antibiotic Education cp - Prescription Opioid Use cp Prescriptions: - Cipro 500 mg Oral Tablet - take 1 tablet by ORAL route every 12 hours for 7 days; 14 tablet; Refills: 0, cp Product Selection Permitted Signatures: Dispatcher [employer] EDMS Mendoza Schulz PA PA cp Juan Cavazos MD MD 7 Yue Guo, RN RN saurabh
[2021-08-04 04:13] LABS: Urine Blood Negative (Negative); Urine Glucose Negative (Negative); Urine Protein Negative (Negative); Urine Specific Gravity 1.015 (1.005-1.030); Urine pH 5.5 (5.0-7.0)
[2021-08-04 04:41] LABS: Urine Bacteria <20 /HPF (<20); Urine RBC NONE SEEN /HPF (NONE SEEN)
[2021-08-04 05:41] VITALS: TEMP 98.5
[2021-08-04 05:53] VITALS: BP 98/66; O2SAT 98
--- NOTE | 2021-08-04 11:55 | RAD REPORT ---
EXAM DESCRIPTION: CT - Chest For Pe Angio - 08/04/2021 2:45 am CLINICAL HISTORY: 40 years Female, SOB COMPARISON: None. FINDINGS: Cardiomediastinal silhouette is normal. No focal consolidation, pneumothorax or pleural effusion. Osseous structures are unremarkable. IMPRESSION: No acute findings. Electronically signed by: Benji Carrera MD 08/04/2021 2:02 AM CDT Due to temporary technical issues with the PACS/Fluency reporting system, reports are being signed by the in house radiologist without review as a courtesy to ensure prompt reporting. The interpreting r adiologist is fully responsible for the content of the report.
--- NOTE | 2021-08-04 13:24 | RAD REPORT ---
EXAM DESCRIPTION: RAD - Chest Single View - 08/04/2021 1:12 am CLINICAL HISTORY: The patient is 56 years old and is Female; ABDOMINAL DISTENTION TECHNIQUE: Frontal view of the chest. COMPARISON: Chest radiograph April 15, 2014 FINDINGS: LUNGS: Unremarkable. No consolidation. PLEURAL SPACE: Unremarkable. No pneumothorax. HEART: Unremarkable. No cardiomegaly. MEDIASTINUM: Unremarkable. BONES/JOINTS: Unremarkable. SOFT TISSUES: Bilateral breast implants are present. UPPER ABDOMEN: Unremarkable as visualized. IMPRESSION: No acute cardiopulmonary process. Electronically signed by: Aliya Chavez MD 08/04/2021 1:19 AM CDT Due to temporary technical issues with the PACS/Fluency reporting system, reports are being signed by the in house radiologist without review as a courtesy to ensure prompt reporting. The interpreting r adiologist is fully responsible for the content of the report.
--- NOTE | 2021-08-04 13:25 | RAD REPORT ---
EXAM DESCRIPTION: CT - Head C Spine Mpr Wo Con - 08/04/2021 3:28 am CLINICAL HISTORY: Syncope COMPARISON: None Available. TECHNIQUE: Multiple helical axial tomographic images were obtained of the head and cervical spine wi thout intravenous contrast. This exam was performed according to our departmental dose-optimization p rogram, which includes automated exposure control, adjustment of the mA and/or kV according to patien t size and/or use of iterative reconstruction technique. FINDINGS: There is no acute intracranial hemorrhage. No mass. No midline shift. No ventriculomegaly. Samuels-white matter differentiation is maintained. Paranasal sinuses are clear. Mastoid air cells and middle ear spaces are clear. Orbits and orbital co ntents are unremarkable. No acute calvarial fracture. No evidence of an acute fracture of the cervical spine. Vertebral heights appear maintained. There is disc space narrowing at C4-C5. Surrounding soft tissues are unremarkable. IMPRESSION: 1. No acute intracranial process. 2. No evidence of an acute fracture of the cervical spine. Electronically signed by: Wilton Orr MD 08/04/2021 2:45 AM CDT Due to temporary technical issues with the PACS/Fluency reporting system, reports are being signed by the in house radiologist without review as a courtesy to ensure prompt reporting. The interpreting r adiologist is fully responsible for the content of the report.
--- NOTE | 2021-08-04 13:27 | RAD REPORT ---
EXAM DESCRIPTION: CT - Abdomen Pelvis W Contrast - 08/04/2021 2:44 am CLINICAL HISTORY: Abdominal distention; Abd pain COMPARISON: None Available. TECHNIQUE: CTA of the chest obtained following IV administration of iodinated contrast. 3-D/MIP refo rmatted images available. CT of the abdomen and pelvis was then performed in the portal venous phase This exam was performed according to our departmental dose-optimization program, which includes autom ated exposure control, adjustment of the mA and/or kV according to patient size and/or use of iterati ve reconstruction technique. FINDINGS: Chest: Pulmonary arteries: Contrast bolus is adequate.No filling defects identified in the pulmonary arterie s to suggest pulmonary embolus. Thyroid: No abnormalities of the visualized thyroid. Great Vessels: Great vessels have normal anatomic configuration. Thoracic Aorta: No abnormalities of the thoracic aorta identified. Heart: No cardiomegaly, significant pericardial effusion, or coronary artery atherosclerosis Lymph Nodes: No enlarged mediastinal lymph nodes identified. Esophagus: Small hiatal hernia. Other: Bilateral breast implants. Lungs: Minimal dependent atelectasis. No confluent airspace consolidation. Pleura: No pleural effusion or pneumothorax. Trachea/Airways: No abnormalities of the visualized trachea or airways. Abdomen: Liver: The liver has normal size and decreased density. No intrahepatic mass or biliary dilatation. Gallbladder: No calcified gallstones. Spleen, Pancreas, and Adrenal Glands: The spleen, pancreas, and adrenal glands are unremarkable. Kidneys: The kidneys have normal size without evidence of solid mass or hydronephrosis. Vasculature: The aorta and IVC have normal caliber and position. The portal vein is patent. The pro ximal visceral and renal arteries are patent. Stomach: The stomach and duodenum have normal course. Other: No free intraperitoneal air. No free fluid or lymphadenopathy. Pelvis: Bladder: Urinary bladder is unremarkable. Bowel: No dilated loops of large or small bowel. Scattered diverticula of the colon. Appendix: Normal appendix. Pelvis: Uterus is not enlarged. Bones: Disc height narrowing with degenerative anterolisthesis of L5 over S1. No acute cortical step- off identified. IMPRESSION: 1. No pulmonary embolus identified. 2. No acute inflammatory or obstructive process identified in the abdomen. 3. Hepatic steatosis. 4. Diverticulosis without evidence of acute diverticulitis. Electronically signed by: Gabriel Wise 08/04/2021 2:29 AM CDT Due to temporary technical issues with the PACS/Fluency reporting system, reports are being signed by the in house radiologist without review as a courtesy to ensure prompt reporting. The interpreting r adiologist is fully responsible for the content of the report.
--- NOTE | 2021-08-05 12:37 | EKG ---
Test Date: 2021-08-04 Test Time: 00:31:08 Platinumsmith: JAMIE MEASUREMENT RESULTS: Intervals: Rate: 74 PA: 152 QRSD: 124 QT: 416 QTc: 461 [place]: P: 53 PA: 152 QRS: 83 T: 53 INTERPRETIVE STATEMENTS: Normal sinus rhythm Right bundle branch block Abnormal ECG Compared to ECG 04/15/2014 08:11:40 Right bundle-branch block now present Sinus tachycardia no longer present Incomplete right bundle-branch block no longer present Electronically Signed On 08-05-21 12:33:29 CDT by Carrington Castellanos
== END 2021-08-04 05:30 | disposition home or self-care (01) ==
LOC: ER 23:33
DX: R55 Syncope and collapse (principal); F10.929 Alcohol use, unspecified with intoxication, unspecified; R10.9 Unspecified abdominal pain; R11.2 Nausea with vomiting, unspecified; I10 Essential (primary) hypertension
CPT/HCPCS: 93005; 85025; 80048; 36415; 80320; 83735; 85610; 80076; 85730; 84484; 83690; 70450; 72125; 71275; 74177; 71045; 96374; 99285; Q9967; J7030; J2405; 81003; 81015

== ENCOUNTER 2022-06-10 13:58 | Emergency (ER) | payer OTHER ==
--- OUTSIDE RECORDS SUMMARY | 2022-06-10 14:03 | XMS REPORT | Continuity of Care Document ---
:1965 Author Organization [facility] t Address [address] [place] [address] Care Team Providers Name Role Phone Gerardo CALDERON, [facility] Primary Care Physician [phone] Alfredo Cuenca MD Attending Clinician ALFREDO CUENCA Attending Clinician Unavailable ALFREDO CUENCA Admitting Clinician Unavailable Payers Payer Name Policy Type Policy Number Effective Date Expiration Date S ource Problems Condition Condition Condition Status Onset Resolution Last Treating Co mments Source Name Details Category Date Date Treatment Clinician Date No known No known Disease Unive rs active active ity of problems problems [facility] Allergies, Adverse Reactions, Alerts Allergy Allergy Status Severity Reaction(s) Onset Inactive Treating Comm ents Source Name Type Date Date Clinician NO KNOWN Drug Active Univers ALLERGIE Class ity of S [facility] Social History Social Habit Start Date Stop Date Quantity Comments Source Sex Assigned At Uni versity [facility] Smoking Status Start Date Stop Date Source Unknown if ever smoked Universit y [facility] Medications Ordered Filled Start Stop Current Ordering Indication Dosage Frequency Signature Comments Components Source Medication Medication Date Date Medication? Clinician (SIG) Name Name Dose 0 No Unknown 3-06 00:00: 00 Dose 2021-0 No Unknown 3-06 00:00: 00 Dose 2021-0 No Unknown 3-05 00:00: 00 Dose 2021-0 No Unknown 3-05 00:00: 00 Dose 2021-0 No Unknown 3-03 00:00: 00 Dose 2021-0 No Unknown 3-03 00:00: 00 Dose 2021-0 No Unknown 3-03 00:00: 00 Dose 2022-0 No Unknown 3-03 00:00: 00 Dose 2022-0 No Unknown 3-03 00:00: 00 Dose 2022-0 No Unknown 3-03 00:00: 00 Dose 2022-0 No Unknown 3-03 00:00: 00 Dose 2022-0 No Unknown 3-03 00:00: 00 Dose 2022-0 No Unknown 3-03 00:00: 00 Dose 2022-0 No Unknown 3-03 00:00: 00 Dose 2022-0 No Unknown 3-03 00:00: 00 Dose 2022-0 No Unknown 3-03 00:00: 00 Dose 2022-0 No Unknown 3-03 00:00: 00 Dose 2022-0 No Unknown 3-03 00:00: 00 Dose 2022-0 No Unknown 3-03 00:00: 00 Dose 2022-0 No Unknown 3-03 00:00: 00 Dose 2022-0 No Unknown 3-03 00:00: 00 Dose 2022-0 No Unknown 3-03 00:00: 00 Dose 2022-0 No Unknown 3-03 00:00: 00 Dose 2022-0 No Unknown 3-03 00:00: 00 Dose 2022-0 No Unknown 3-03 00:00: 00 Dose 2022-0 No Unknown 3-03 00:00: 00 Dose 2022-0 No Unknown 3-03 00:00: 00 Dose 2022-0 No Unknown 2-10 00:00: 00 Dose 2022-0 No Unknown 2-10 00:00: 00 Dose 2022-0 No Unknown 2-10 00:00: 00 Dose 2021-0 No Unknown 2-27 00:00: 00 Dose 2021-0 No Unknown 2-27 00:00: 00 hydroxyzine 2021-0 No 12mg HCl 25 mg 1-13 tablet 00:00: 00 ibuprofen 2021-0 No 1mg 400 mg 1-13 tablet 00:00: 00 Trilipix 2021-0 No 1mg 135 mg 1-13 capsule,del 00:00: ayed 00 release citalopram 1-0 No 1mg 10 mg 1-13 tablet 00:00: 00 citalopram 2020-0 No 1mg 10 mg 9-24 tablet 00:00: 00 hydroxyzine 2020-0 No 12mg HCl 25 mg 9-24 tablet 00:00: 00 citalopram No 1mg 10 mg 7-09 tablet 00:00: 00 hydroxyzine No 12mg HCl 25 mg 7-09 tablet 00:00: 00 amlodipine No 1mg 5 mg tablet 01-19 00:00: 00 ranitidine 0 No 1mg 150 mg 9-12 tablet 00:00: 00 No known No Univers medications ity [facility] Immunizations Ordered Immunization Filled Immunization Date Status Commen ts Source Name Name Tdap 2021-06-19 Completed 00:00:00 Influenza, seasonal, 2021-06-19 Completed inj 00:00:00 Moderna COVID-19 2020-08-29 Completed Vaccine 00:00:00 Moderna COVID-19 2020-08-01 Completed Vaccine 00:00:00 Vital Signs Vital Name Observation Time Observation Value Comments Source Systolic blood 2019-08-11 18:00:00 135 mm[Hg] Univer sity of pressure [facility] Diastolic blood 2019-08-11 18:00:00 70 mm[Hg] Unive [facility] Heart rate 2019-08-11 18:00:00 64 /min [facility] Respiratory rate 2019-08-11 18:00:00 12 /min [facility] Oxygen saturation in 2019-08-11 18:00:00 100 /min [facility] Arterial blood by [facility] Pulse oximetry [facility] Body temperature 2019-08-11 16:17:00 37.11 [facility] Body height 2019-08-11 16:17:00 152.4 cm [facility] Body weight 2019-08-11 16:17:00 58.06 kg [facility] BMI 2019-08-11 16:17:00 25.00 kg/m2 [facility] BP Systolic 2022-04-28 11:10:00 128 mm[Hg] BP Diastolic 2022-04-28 11:10:00 80 mm[Hg] Weight Measured 2022-04-28 11:10:00 131.60 pounds Height Measured 2022-04-28 11:10:00 58.66 inches Body Temperature 2022-04-28 11:10:00 97.30 degrees Heart Rate 2022-04-28 11:10:00 83.00 /min Respiratory Rate 2022-04-28 11:10:00 18.00 /min BP Diastolic 2021-07-10 16:20:00 72 mm[Hg] Weight Measured 2021-07-10 16:20:00 130.40 pounds Height Measured 2021-07-10 16:20:00 58.66 inches Body Temperature 2021-07-10 16:20:00 98.00 degrees Heart Rate 2021-07-10 16:20:00 81.00 /min Respiratory Rate 2021-07-10 16:20:00 18.00 /min BP Systolic 2021-07-10 16:20:00 107 mm[Hg] BP Systolic 2021-06-19 10:05:00 127 mm[Hg] BP Diastolic 2021-06-19 10:05:00 87 mm[Hg] Weight Measured 2021-06-19 10:05:00 130.20 pounds Height Measured 2021-06-19 10:05:00 58.66 inches Body Temperature 2021-06-19 10:05:00 98.10 degrees Heart Rate 2021-06-19 10:05:00 82.00 /min Respiratory Rate 2021-06-19 10:05:00 18.00 /min BP Systolic 2021-03-25 09:18:00 117 mm[Hg] BP Diastolic 2021-03-25 09:18:00 73 mm[Hg] Weight Measured 2021-03-25 09:18:00 127.80 pounds Height Measured 2021-03-25 09:18:00 58.66 inches Body Temperature 2021-03-25 09:18:00 97.20 degrees Heart Rate 2021-03-25 09:18:00 Respiratory Rate 2021-03-25 09:18:00 BP Systolic 2021-03-25 08:43:00 117 mm[Hg] BP Diastolic 2021-03-25 08:43:00 73 mm[Hg] Weight Measured 2021-03-25 08:43:00 127.80 pounds Height Measured 2021-03-25 08:43:00 58.66 inches Body Temperature 2021-03-25 08:43:00 97.20 degrees Heart Rate 2021-03-25 08:43:00 Respiratory Rate 2021-03-25 08:43:00 BP Systolic 2020-05-22 11:07:00 105 mm[Hg] BP Diastolic 2020-05-22 11:07:00 72 mm[Hg] Weight Measured 2020-05-22 11:07:00 133.80 pounds Height Measured 2020-05-22 11:07:00 62.00 inches Body Temperature 2020-05-22 11:07:00 98.50 degrees Heart Rate 2020-05-22 11:07:00 88.00 /min Respiratory Rate 2020-05-22 11:07:00 17.00 /min BP Systolic 2019-11-20 11:58:00 123 mm[Hg] BP Diastolic 2019-11-20 11:58:00 71 mm[Hg] Weight Measured 2019-11-20 11:58:00 135.80 pounds Height Measured 2019-11-20 11:58:00 62.00 inches Body Temperature 2019-11-20 11:58:00 98.50 degrees Heart Rate 2019-11-20 11:58:00 74.00 /min Respiratory Rate 2019-11-20 11:58:00 16.00 /min BP Systolic 2019-11-16 09:57:00 141 mm[Hg] BP Diastolic 2019-11-16 09:57:00 72 mm[Hg] Weight Measured 2019-11-16 09:57:00 135.00 pounds Height Measured 2019-11-16 09:57:00 62.00 inches Body Temperature 2019-11-16 09:57:00 98.30 degrees Heart Rate 2019-11-16 09:57:00 73.00 /min Respiratory Rate 2019-11-16 09:57:00 16.00 /min BP Systolic 2018-01-19 11:04:00 119 mm[Hg] BP Diastolic 2018-01-19 11:04:00 78 mm[Hg] Weight Measured 2018-01-19 11:04:00 Height Measured 2018-01-19 11:04:00 Body Temperature 2018-01-19 11:04:00 Heart Rate 2018-01-19 11:04:00 Respiratory Rate 2018-01-19 11:04:00 Procedures Procedure Date / Time Performing Clinician Source Performed XR CHEST 1 VW 2019-08-11 16:56:28 Alfredo Cuenca [facility] TROPONIN I 2019-08-11 16:44:00 Alfredo Cuenca [facility] COMP. METABOLIC PANEL 2019-08-11 16:44:00 Alfredo Cuenca [facility] ([id number]) [facility] CBC WITH DIFFERENTIAL 2019-08-11 16:44:00 Alfredo Cuenca [facility] EKG-12 LEAD 2019-08-11 16:36:30 Alfredo Cuenca [facility] NOTICE OF PRIVACY 2019-08-11 16:10:29 Doctor Unassigned, No Univ [facility] PRACTICES Name [facility] CONSENT/REFUSAL FOR 2019-08-11 16:10:12 [facility] Plan of Care Planned Activity Planned Date Details Comments Source Goal Plan of Care Note [code = 94181-6] Goal Plan of Care Note [code = 58344-4] Goal Plan of Care Note [code = 46330-6] Goal Plan of Care Note [code = 10272-7] Goal Plan of Care Note [code = 16585-9] Goal Plan of Care Note [code = 77308-2] Goal Plan of Care Note [code = 89724-5] Goal Plan of Care Note [code = 76726-1] Goal Plan of Care Note [code = 38282-6] Goal Plan of Care Note [code = 10349-5] Goal Plan of Care Note [code = 61984-5] Goal Plan of Care Note [code = 59483-1] Goal Plan of Care Note [code = 57800-7] Goal Plan of Care Note [code = 04334-1] Goal Plan of Care Note [code = 85209-1] Goal Plan of Care Note [code = 50292-9] Goal Plan of Care Note [code = 99577-1] Goal Plan of Care Note [code = 91360-9] Goal Plan of Care Note [code = 54363-6] Goal Plan of Care Note [code = 75627-9] Goal Plan of Care Note [code = 46549-8] Goal Plan of Care Note [code = 78940-3] Goal Plan of Care Note [code = 28713-3] Goal Plan of Care Note [code = 78031-4] Goal Plan of Care Note [code = 86235-8] Goal Plan of Care Note [code = 20539-7] Goal Plan of Care Note [code = 06969-8] Encounters Start End Encounter Admission Attending Care Care Encounter Source Date/Time Date/Time Type Type Clinicians Facility Department ID 2022-05-05 2022-05-05 Outpatient [facility] [id number] [place] 10:34:45 10:34:45 [address] [place] 2022-04-28 2022-04-28 Outpatient [facility] [id number] Rafiq 11:06:07 11:06:07 [address] [place] 2022-04-28 2022-04-28 Outpatient [id number] 00:00:00 00:00:00 Visit [id number] 2019-08-11 2019-08-11 Emergency [facility] [id number] Univers 11:12:26 13:44:00 [facility] [id number] [facility] [id number] [facility] [id number] [place] [address] [place] 2019-08-11 2019-08-11 Emergency X [facility] ERT [id number] Univers 11:12:26 13:44:00 [facility] Results Test Description Test Time Test Comments Results Result Comments Source VITAMIN B-12 2021-07-12 04:44:18 Test Item Value Reference Range Interpretation Comme nts VITAMIN B-12 (test code = 2840) >2000 PG/ML 200-950 H [id number] 03:17:13 Test Item Value Reference Range Interpretation Comments RPR RESULT (test NON-REACTIVE NON-REACTIVE code = 3501) RPR TITER (test NOT INDIC. NOT INDIC. UNLESS OTHE RWISE code = 3500) TITER INDICATED, ALL TESTING PERFORMED [facility] [address] [place] [address], [place] [address] [address] LABORATORY DIRE CTOR: SHAMA SORIANO M.D. CLIA NUMBER [id number] [place] [id number] CBC W/AUTO DIFF WITH [id number] 02:38:15 Test Item Value Reference Range Interpretation [...] = 1036) NUCLEATED RBCS (test 0.0 /100 WBC'S See_Comment [Aut omated code = 1065) message] The sy stem which generated this [...] RBCS 0.00 K/UL 0.00-0.11 (test code = 25202) [id number] 00:00:00 Test Item Value Reference Range Interpretation Comments RPR RESULT (test code = NON-REACTIVE 3501) RPR TITER (test code = 3500) NOT INDIC. TITER [id number] 00:00:00 Test Item Value Reference Range Interpretation Comments RPR RESULT (test code = NON-REACTIVE 3501) RPR TITER (test code = 3500) NOT INDIC. TITER VITAMIN [id number] 00:00:00 Test Item Value Reference Range Interpretation Comments VITAMIN B-12 (test code = 2840) >2000 PG/ML VITAMIN [id number] 00:00:00 Test Item Value Reference Range Interpretation Comments VITAMIN B-12 (test code = 2840) >2000 PG/ML VITAMIN [id number] 00:00:00 Test Item Value Reference Range Interpretation Comments VITAMIN B-12 (test code = 2840) >2000 PG/ML CBC W/AUTO [id number] 00:00:00 Test Item Value Reference Range Interpretation Comments WBC (test code = 1001) 4.8 K/UL RBC (test code = 1002) 4.17 M/UL HEMOGLOBIN (test code = 1003) 13.1 G/DL HEMATOCRIT (test code = 1004) 37.7 % MCV (test code = 1005) 90.4 fL MCH (test code = 1006) 31.4 PG MCHC (test code = 1007) 34.7 G/DL RDW (test code = 1038) 12.8 % NEUTROPHILS (test code = 1008) 37.3 % LYMPHOCYTES (test code = 1010) 50.5 % MONOCYTES (test code = 1011) 8.9 % EOSINOPHILS (test code = 1012) 2.1 % BASOPHILS (test code = 1013) 1.0 % IMMATURE GRANULOCYTES (test 0.2 % code = 1036) NUCLEATED RBCS (test code = 0.0 /100WBC'S 1065) PLATELET COUNT (test code = 355 K/UL 1015) ABSOLUTE NEUTROPHILS (test code 1.79 K/UL = 1066) ABSOLUTE LYMPHOCYTES (test code 2.43 K/UL = 1067) ABSOLUTE MONOCYTES (test code = 0.43 K/UL 1068) ABSOLUTE EOSINOPHILS (test code 0.10 K/UL = 1040) ABSOLUTE BASOPHILS (test code = 0.05 K/UL 1069) ABS IMMATURE GRANULOCYTES (test 0.01 K/UL code = 1020) ABS NUCLEATED RBCS (test code = 0.00 K/UL 98001) CBC W/AUTO [id number] 00:00:00 Test Item Value Reference Range Interpretation Comments WBC (test code = 1001) 4.8 K/UL RBC (test code = 1002) 4.17 M/UL HEMOGLOBIN (test code = 1003) 13.1 G/DL HEMATOCRIT (test code = 1004) 37.7 % MCV (test code = 1005) 90.4 fL MCH (test code = 1006) 31.4 PG MCHC (test code = 1007) 34.7 G/DL RDW (test code = 1038) 12.8 % NEUTROPHILS (test code = 1008) 37.3 % LYMPHOCYTES (test code = 1010) 50.5 % MONOCYTES (test code = 1011) 8.9 % EOSINOPHILS (test code = 1012) 2.1 % BASOPHILS (test code = 1013) 1.0 % IMMATURE GRANULOCYTES (test 0.2 % code = 1036) NUCLEATED RBCS (test code = 0.0 /100WBC'S 1065) PLATELET COUNT (test code = 355 K/UL 1015) ABSOLUTE NEUTROPHILS (test code 1.79 K/UL = 1066) ABSOLUTE LYMPHOCYTES (test code 2.43 K/UL = 1067) ABSOLUTE MONOCYTES (test code = 0.43 K/UL 1068) ABSOLUTE EOSINOPHILS (test code 0.10 K/UL = 1040) ABSOLUTE BASOPHILS (test code = 0.05 K/UL 1069) ABS IMMATURE GRANULOCYTES (test 0.01 K/UL code = 1020) ABS NUCLEATED RBCS (test code = 0.00 K/UL 90154) CBC W/AUTO [id number] 00:00:00 Test Item Value Reference Range Interpretation Comments WBC (test code = 1001) 4.8 K/UL RBC (test code = 1002) 4.17 M/UL HEMOGLOBIN (test code = 1003) 13.1 G/DL HEMATOCRIT (test code = 1004) 37.7 % MCV (test code = 1005) 90.4 fL MCH (test code = 1006) 31.4 PG MCHC (test code = 1007) 34.7 G/DL RDW (test code = 1038) 12.8 % NEUTROPHILS (test code = 1008) 37.3 % LYMPHOCYTES (test code = 1010) 50.5 % MONOCYTES (test code = 1011) 8.9 % EOSINOPHILS (test code = 1012) 2.1 % BASOPHILS (test code = 1013) 1.0 % IMMATURE GRANULOCYTES (test 0.2 % code = 1036) NUCLEATED RBCS (test code = 0.0 /100WBC'S 1065) PLATELET COUNT (test code = 355 K/UL 1015) ABSOLUTE NEUTROPHILS (test code 1.79 K/UL = 1066) ABSOLUTE LYMPHOCYTES (test code 2.43 K/UL = 1067) ABSOLUTE MONOCYTES (test code = 0.43 K/UL 1068) ABSOLUTE EOSINOPHILS (test code 0.10 K/UL = 1040) ABSOLUTE BASOPHILS (test code = 0.05 K/UL 1069) ABS IMMATURE GRANULOCYTES (test 0.01 K/UL code = 1020) ABS NUCLEATED RBCS (test code = 0.00 K/UL 92334) [id number] 00:00:00 Test Item Value Reference Range Interpretation Comments RPR RESULT (test code = NON-REACTIVE 3501) RPR TITER (test code = 3500) NOT INDIC. TITER LIPID [id number] 03:57:42 Test Item Value Reference Range Interpretation [...] MOREINFORMATION , SEE CLIENT ANNOUNCE MENT AT [email or web address] RISK RATIO LDL/HDL 1.56 RATIO <3.22 (test code = 2238) COMPREHENSIVE METABOLIC [id number] 03:57:42 Test Item Value Reference Range Interpretation Comments GLUCOSE (test code = 99 MG/DL 70-99 2217) BUN (test code = 15 MG/DL 6-20 2207) CREATININE (test 0.77 MG/DL 0.60-1.30 code = 2213) eGFR (2020 CKD-EPI) 92 >60 (test code = 65322) ML/MIN/1.73 CALC BUN/CREAT (test 19 RATIO 6-28 code = 2235) SODIUM (test code = 141 MEQ/L 017-901 4583) POTASSIUM (test code 4.5 MEQ/L 3.5-5.4 = 2227) CHLORIDE (test code 103 MEQ/L 95-107 = 2214) CARBON DIOXIDE (test 24 MEQ/L 19-31 code = 2205) CALCIUM (test code = 10.0 MG/DL 8.5-10.5 2208) PROTEIN, TOTAL (test 7.8 G/DL 6.1-8.3 code = 2228) ALBUMIN (test code = 4.8 G/DL 3.5-5.2 2200) CALC GLOBULIN (test 3.0 G/DL 1.9-3.7 code = 2239) CALC A/G RATIO (test 1.6 RATIO 1.0-2.6 code = 2233) BILIRUBIN, TOTAL 0.5 MG/DL See_Comment [Automated message] (test code = 2206) The syste m which generated this result transmitted ref erence range: <=1.2. T he reference range was not used to int erpret this result as normal/abnormal . ALKALINE PHOSPHATASE 63 U/L 40-133 (test code = 2203) AST (test code = 20 U/L 9-40 2217) ALT (test code = 25 U/L 5-40 UNLESS OTH ERWISE 2218) INDICATED, ALL TESTING PERFORM [facility] [place]. [address] [facility] [place] [place] [address] [facility] DIRECTOR: SHAMA RAND M.D. CLIA NUMBER [id number] CAP ACCREDITATION [place] O. [id number] LIPID [id number] 00:00:00 Test Item Value Reference Range Interpretation Comments CHOLESTEROL (test code = 2210) 288 MG/DL TRIGLYCERIDES (test code = 2232) 122 MG/DL HDL CHOLESTEROL (test code = 2220) 103 MG/DL CALC LDL CHOL (test code = 2237) 161 MG/DL RISK RATIO LDL/HDL (test code = 1.56 RATIO 2238) LIPID [id number] 00:00:00 Test Item Value Reference Range Interpretation Comments CHOLESTEROL (test code = 2210) 288 MG/DL TRIGLYCERIDES (test code = 2232) 122 MG/DL HDL CHOLESTEROL (test code = 2220) 103 MG/DL CALC LDL CHOL (test code = 2237) 161 MG/DL RISK RATIO LDL/HDL (test code = 1.56 RATIO 2238) COMPREHENSIVE METABOLIC [id number] 00:00:00 Test Item Value Reference Range Interpretation Comments GLUCOSE (test code = 2217) 99 MG/DL BUN (test code = 2208) 15 MG/DL CREATININE (test code = 2214) 0.77 MG/DL eGFR (2020 CKD-EPI) (test code 92 ML/MIN/1.73 = 44051) CALC BUN/CREAT (test code = 19 RATIO 2235) SODIUM (test code = 2231) 141 MEQ/L POTASSIUM (test code = 2228) 4.5 MEQ/L CHLORIDE (test code = 2215) 103 MEQ/L CARBON DIOXIDE (test code = 24 MEQ/L 2205) CALCIUM (test code = 2209) 10.0 MG/DL PROTEIN, TOTAL (test code = 7.8 G/DL 2228) ALBUMIN (test code = 2201) 4.8 G/DL CALC GLOBULIN (test code = 3.0 G/DL 2240) CALC A/G RATIO (test code = 1.6 RATIO 2234) BILIRUBIN, TOTAL (test code = 0.5 MG/DL 2206) ALKALINE PHOSPHATASE (test 63 U/L code = 2204) AST (test code = 2218) 20 U/L ALT (test code = 2219) 25 U/L COMPREHENSIVE METABOLIC [id number] 00:00:00 Test Item Value Reference Range Interpretation Comments GLUCOSE (test code = 2217) 99 MG/DL BUN (test code = 2208) 15 MG/DL CREATININE (test code = 2214) 0.77 MG/DL eGFR (2020 CKD-EPI) (test code 92 ML/MIN/1.73 = 97144) CALC BUN/CREAT (test code = 19 RATIO 2235) SODIUM (test code = 2231) 141 MEQ/L POTASSIUM (test code = 2228) 4.5 MEQ/L CHLORIDE (test code = 2215) 103 MEQ/L CARBON DIOXIDE (test code = 24 MEQ/L 2205) CALCIUM (test code = 2209) 10.0 MG/DL PROTEIN, TOTAL (test code = 7.8 G/DL 2228) ALBUMIN (test code = 2201) 4.8 G/DL CALC GLOBULIN (test code = 3.0 G/DL 2240) CALC A/G RATIO (test code = 1.6 RATIO 2234) BILIRUBIN, TOTAL (test code = 0.5 MG/DL 2206) ALKALINE PHOSPHATASE (test 63 U/L code = 2204) AST (test code = 2218) 20 U/L ALT (test code = 2219) 25 U/L COMPREHENSIVE METABOLIC [id number] 00:00:00 Test Item Value Reference Range Interpretation Comments GLUCOSE (test code = 2217) 99 MG/DL BUN (test code = 2208) 15 MG/DL CREATININE (test code = 2214) 0.83 MG/DL eGFR AMER. (test code 93 ML/MIN/1.73 = 23228) eGFR NON- AMER. (test 80 ML/MIN/1.73 code = 94432) CALC BUN/CREAT (test code = 18 RATIO 2235) SODIUM (test code = 2231) 138 MEQ/L POTASSIUM (test code = 2228) 4.5 MEQ/L CHLORIDE (test code = 2215) 105 MEQ/L CARBON DIOXIDE (test code = 24 MEQ/L 2205) CALCIUM (test code = 2209) 9.8 MG/DL PROTEIN, TOTAL (test code = 7.1 G/DL 2228) ALBUMIN (test code = 2201) 4.6 G/DL CALC GLOBULIN (test code = 2.5 G/DL 2240) CALC A/G RATIO (test code = 1.8 RATIO 2234) BILIRUBIN, TOTAL (test code = 0.3 MG/DL 2206) ALKALINE PHOSPHATASE (test 82 U/L code = 2204) AST (test code = 2218) 38 U/L ALT (test code = 2219) 44 U/L [id number] 00:00:00 Test Item Value Reference Range Interpretation Comments TSH, THIRD GENERATION (test code 1.930 UIU/ML = 2821) [id number] 00:00:00 Test Item Value Reference Range Interpretation Comments TSH, THIRD GENERATION (test code 1.930 UIU/ML = 2821) [id number] 00:00:00 Test Item Value Reference Range Interpretation Comments TSH, THIRD GENERATION (test code 1.930 UIU/ML = 2821) [id number] 00:00:00 Test Item Value Reference Range Interpretation Comments AMYLASE (test code = 2205) 39 U/L [id number] 00:00:00 Test Item Value Reference Range Interpretation Comments AMYLASE (test code = 2205) 39 U/L [id number] 00:00:00 Test Item Value Reference Range Interpretation Comments LIPASE (test code = 2058) 32 U/L [id number] 00:00:00 Test Item Value Reference Range Interpretation Comments LIPASE (test code = 2057) 32 U/L [id number] 00:00:00 Test Item Value Reference Range Interpretation Comments LIPASE (test code = 2057) 32 U/L CBC W/AUTO [id number] 00:00:00 Test Item Value Reference Range Interpretation Comments WBC (test code = 1001) 3.7 K/UL RBC (test code = 1002) 4.06 M/UL HEMOGLOBIN (test code = 1003) 12.8 G/DL HEMATOCRIT (test code = 1004) 38.0 % MCV (test code = 1005) 93.6 fL MCH (test code = 1006) 31.5 PG MCHC (test code = 1007) 33.7 G/DL RDW (test code = 1038) 12.1 % NEUTROPHILS (test code = 1008) 41.6 % LYMPHOCYTES (test code = 1010) 46.9 % MONOCYTES (test code = 1011) 9.1 % EOSINOPHILS (test code = 1012) 1.3 % BASOPHILS (test code = 1013) 0.8 % IMMATURE GRANULOCYTES (test 0.3 % code = 1036) NUCLEATED RBCS (test code = 0.0 /100WBC'S 1065) PLATELET COUNT (test code = 340 K/UL 1015) ABSOLUTE NEUTROPHILS (test code 1.55 K/UL = 1066) ABSOLUTE LYMPHOCYTES (test code 1.75 K/UL = 1067) ABSOLUTE MONOCYTES (test code = 0.34 K/UL 1068) ABSOLUTE EOSINOPHILS (test code 0.05 K/UL = 1040) ABSOLUTE BASOPHILS (test code = 0.03 K/UL 1069) ABS IMMATURE GRANULOCYTES (test 0.01 K/UL code = 1020) ABS NUCLEATED RBCS (test code = 0.00 K/UL 17480) CBC W/AUTO [id number] 00:00:00 Test Item Value Reference Range Interpretation Comments WBC (test code = 1001) 3.7 K/UL RBC (test code = 1002) 4.06 M/UL HEMOGLOBIN (test code = 1003) 12.8 G/DL HEMATOCRIT (test code = 1004) 38.0 % MCV (test code = 1005) 93.6 fL MCH (test code = 1006) 31.5 PG MCHC (test code = 1007) 33.7 G/DL RDW (test code = 1038) 12.1 % NEUTROPHILS (test code = 1008) 41.6 % LYMPHOCYTES (test code = 1010) 46.9 % MONOCYTES (test code = 1011) 9.1 % EOSINOPHILS (test code = 1012) 1.3 % BASOPHILS (test code = 1013) 0.8 % IMMATURE GRANULOCYTES (test 0.3 % code = 1036) NUCLEATED RBCS (test code = 0.0 /100WBC'S 1065) PLATELET COUNT (test code = 340 K/UL 1015) ABSOLUTE NEUTROPHILS (test code 1.55 K/UL = 1066) ABSOLUTE LYMPHOCYTES (test code 1.75 K/UL = 1067) ABSOLUTE MONOCYTES (test code = 0.34 K/UL 1068) ABSOLUTE EOSINOPHILS (test code 0.05 K/UL = 1040) ABSOLUTE BASOPHILS (test code = 0.03 K/UL 1069) ABS IMMATURE GRANULOCYTES (test 0.01 K/UL code = 1020) ABS NUCLEATED RBCS (test code = 0.00 K/UL 03915) CBC W/AUTO [id number] 00:00:00 Test Item Value Reference Range Interpretation Comments WBC (test code = 1001) 3.7 K/UL RBC (test code = 1002) 4.06 M/UL HEMOGLOBIN (test code = 1003) 12.8 G/DL HEMATOCRIT (test code = 1004) 38.0 % MCV (test code = 1005) 93.6 fL MCH (test code = 1006) 31.5 PG MCHC (test code = 1007) 33.7 G/DL RDW (test code = 1038) 12.1 % NEUTROPHILS (test code = 1008) 41.6 % LYMPHOCYTES (test code = 1010) 46.9 % MONOCYTES (test code = 1011) 9.1 % EOSINOPHILS (test code = 1012) 1.3 % BASOPHILS (test code = 1013) 0.8 % IMMATURE GRANULOCYTES (test 0.3 % code = 1036) NUCLEATED RBCS (test code = 0.0 /100WBC'S 1065) PLATELET COUNT (test code = 340 K/UL 1015) ABSOLUTE NEUTROPHILS (test code 1.55 K/UL = 1066) ABSOLUTE LYMPHOCYTES (test code 1.75 K/UL = 1067) ABSOLUTE MONOCYTES (test code = 0.34 K/UL 1068) ABSOLUTE EOSINOPHILS (test code 0.05 K/UL = 1040) ABSOLUTE BASOPHILS (test code = 0.03 K/UL 1069) ABS IMMATURE GRANULOCYTES (test 0.01 K/UL code = 1020) ABS NUCLEATED RBCS (test code = 0.00 K/UL 95941) LIPID [id number] 00:00:00 Test Item Value Reference Range Interpretation Comments CHOLESTEROL (test code = 2210) 277 MG/DL TRIGLYCERIDES (test code = 2232) 95 MG/DL HDL CHOLESTEROL (test code = 2220) 109 MG/DL CALC LDL CHOL (test code = 2237) 148 MG/DL RISK RATIO LDL/HDL (test code = 1.36 RATIO 2238) LIPID [id number] 00:00:00 Test Item Value Reference Range Interpretation Comments CHOLESTEROL (test code = 2210) 277 MG/DL TRIGLYCERIDES (test code = 2232) 95 MG/DL HDL CHOLESTEROL (test code = 2220) 109 MG/DL CALC LDL CHOL (test code = 2237) 148 MG/DL RISK RATIO LDL/HDL (test code = 1.36 RATIO 2238) COMPREHENSIVE METABOLIC [id number] 00:00:00 Test Item Value Reference Range Interpretation Comments GLUCOSE (test code = 2217) 99 MG/DL BUN (test code = 2208) 15 MG/DL CREATININE (test code = 2214) 0.83 MG/DL eGFR AMER. (test code 93 ML/MIN/1.73 = 61280) eGFR NON- AMER. (test 80 ML/MIN/1.73 code = 20226) CALC BUN/CREAT (test code = 18 RATIO 2235) SODIUM (test code = 2231) 138 MEQ/L POTASSIUM (test code = 2228) 4.5 MEQ/L CHLORIDE (test code = 2215) 105 MEQ/L CARBON DIOXIDE (test code = 24 MEQ/L 2205) CALCIUM (test code = 2209) 9.8 MG/DL PROTEIN, TOTAL (test code = 7.1 G/DL 2228) ALBUMIN (test code = 2201) 4.6 G/DL CALC GLOBULIN (test code = 2.5 G/DL 2239) CALC A/G RATIO (test code = 1.8 RATIO 2233) BILIRUBIN, TOTAL (test code = 0.3 MG/DL 2206) ALKALINE PHOSPHATASE (test 82 U/L code = 2204) AST (test code = 2218) 38 U/L ALT (test code = 2219) 44 U/L SARS-CoV-2 (COVID-19) by RT-PCR (HIGH RISK)2020-01-09 00:00:00 Test Item Value Reference Range Interpretation Comments SARS-CoV-2 INTERPRETATION (test NEGATIVE code = 50245) SOURCE (test code = 60696) NOT SPECIFIED SARS-CoV-2 (COVID-19) by RT-PCR (HIGH RISK)2020-01-09 00:00:00 Test Item Value Reference Range Interpretation Comments SARS-CoV-2 INTERPRETATION (test NEGATIVE code = 16955) SOURCE (test code = 15445) NOT SPECIFIED ACUTE HEPATITIS [id number] 00:00:00 Test Item Value Reference Range Interpretation Comments HEPATITIS A IgM (test code = NON-REACTIVE 78097) HEPATITIS B CORE IgM (test code NON-REACTIVE = 4644) HEPATITIS B SURF AG (test code = NON-REACTIVE 2739) HEPATITIS C ANTIBODY (test code NON-REACTIVE = 4675) INTERPRETATION HEPATITIS A: (NOTE) (test code = 2552) INTERPRETATION HEPATITIS B: (NOTE) (test code = 94681) INTERPRETATION HEPATITIS C: (NOTE) (test code = 50630) ACUTE HEPATITIS [id number] 00:00:00 Test Item Value Reference Range Interpretation Comments HEPATITIS A IgM (test code = NON-REACTIVE 04496) HEPATITIS B CORE IgM (test code NON-REACTIVE = 4644) HEPATITIS B SURF AG (test code = NON-REACTIVE 2739) HEPATITIS C ANTIBODY (test code NON-REACTIVE = 4675) INTERPRETATION HEPATITIS A: (NOTE) (test code = 2552) INTERPRETATION HEPATITIS B: (NOTE) (test code = 60867) INTERPRETATION HEPATITIS C: (NOTE) (test code = 83206) HIV AB/AG COMBO RFLX [id number] 00:00:00 Test Item Value Reference Range Interpretation Comments HIV 1/2 4TH GEN, RFLX CONF (test NON-REACTIVE code = 3514) HIV AB/AG COMBO RFLX [id number] 00:00:00 Test Item Value Reference Range Interpretation Comments HIV 1/2 4TH GEN, RFLX CONF (test NON-REACTIVE code = 3514) [id number] 00:00:00 Test Item Value Reference Range Interpretation Comments RPR RESULT (test code = NON-REACTIVE 3501) RPR TITER (test code = 3500) NOT INDIC. TITER [id number] 00:00:00 Test Item Value Reference Range Interpretation Comments RPR RESULT (test code = NON-REACTIVE 3501) RPR TITER (test code = 3500) NOT INDIC. TITER [id number] 00:00:00 Test Item Value Reference Range Interpretation Comments RPR RESULT (test code = NON-REACTIVE 3501) RPR TITER (test code = 3500) NOT INDIC. TITER HPV HIGH RISK WITH GENOTYPE, [id number] 00:00:00 Test Item Value Reference Range Interpretation Comments HPV HIGH RISK INTERP (test code = NEGATIVE 66623) HPV 16 (test code = 96680) NEGATIVE HPV 18 (test code = 33355) NEGATIVE HPV, HR, OTHER GENOTYPES (test code NEGATIVE = 58847) HPV HIGH RISK WITH GENOTYPE, [id number] 00:00:00 Test Item Value Reference Range Interpretation Comments HPV HIGH RISK INTERP (test code = NEGATIVE 93643) HPV 16 (test code = 89366) NEGATIVE HPV 18 (test code = 49368) NEGATIVE HPV, HR, OTHER GENOTYPES (test code NEGATIVE = 88267) GC AND CHLAMYDIA AMPLIFIED, [id number] 00:00:00 Test Item Value Reference Range Interpretation Comments GONORRHEA, TMA (test code = 84105) NEGATIVE CHLAMYDIA, TMA (test code = 99829) NEGATIVE GC AND CHLAMYDIA AMPLIFIED, [id number] 00:00:00 Test Item Value Reference Range Interpretation Comments GONORRHEA, TMA (test code = 74952) NEGATIVE CHLAMYDIA, TMA (test code = 94427) NEGATIVE PAP TEST, THINPREP, [id number] 00:00:00 Test Item Value Reference Range Interpretation Comments SOURCE: (test code = Cervical/Endocervical 8001) SLIDES: (test code = 1 8011) LMP: (test code = 8021) 08/02/2019 SPECIMEN ADEQUACY: (test (NOTE) code = 61095) INTERPRETATION: (test NILM/NO EPITH. code = 32701) ABNORMALITY;SEE BELOW CHESS INSTRUCTOR: (test Sarahi Nelson code = 8101) Jordan,CT(ASCP)IAC LOCATION: (test code = (NOTE) 97364) CPT: (test code = 8140) (NOTE) PAP TEST, THINPREP, [id number] 00:00:00 Test Item Value Reference Range Interpretation Comments SOURCE: (test code = Cervical/Endocervical 8001) SLIDES: (test code = 1 8011) LMP: (test code = 8021) 08/02/2019 SPECIMEN ADEQUACY: (test (NOTE) code = 39817) INTERPRETATION: (test NILM/NO EPITH. code = 14488) ABNORMALITY;SEE BELOW CHESS INSTRUCTOR: (test Sarahi Nelson code = 8101) Jordan,CT(ASCP)IAC LOCATION: (test code = (NOTE) 59098) CPT: (test code = 8140) (NOTE) TROPONIN [id number] 17:36:00 Test Item Value Reference Range Interpretation Comments TROPONIN I (test 0.003 ng/mL See_Comment [Automated code = 6238988969) message] The system which generated this result [...] ? Lab Interpretation Normal (test code = 25434-6) [facility] [id number] 17:31:29 No acute cardiopulmonary abnormality Preliminary Report Dictated by Resident: Douglas Marcelo MD., have reviewed this study and agree with the abovereport.EXAM: XR CHEST 1 VW HISTORY: 54 years-old; Female; Chest PAin COMPARISON: None FINDINGS: Lungs/Pleura: The lungs are clear with nofocal consolidation. There is nopleural effusion or pneumothorax. Heart/Mediastinum: The cardiomediastinal silhouette is normal. No acute osseous structure abnormality. [facility], Radiant Results Inft User - 08/11/2019 12:32 PM CDTEXAM: XR CHEST 1 VWHISTORY: 54 years-old; Female; Chest PAin COMPARISON: None FINDINGS:Lungs/Pleura: The lungs are clear with no focal consolidation. There is nopleural effusion or pneumothorax.Heart/Mediastinum: The cardiomediastinal silhouette is normal.No acute osseous structure abnormality.IMPRESSIONNo acute cardiopulmonary abnormalityPreliminary Report Dictated by Resident: Douglas Ortiz MD., have reviewed this study and agree with the abovereport.[facility] MET[facility]OLIC PANEL ([id number]) 2019-08-11 17:25:00 Test Item Value Reference Range Interpretation Comments NA (test code = 140 mmol/L 135-145 5987592551) K (test code = 4.1 mmol/L 3.5-5 9163355644) CL (test code = 105 mmol/L 98-108 3569221674) CO2 TOTAL (test code = 25 mmol/L 23-31 3417768121) AGAP (test code = 2-16 4857796752) BUN (test code = 12 mg/dL 7-23 8280213960) GLUCOSE (test code = 98 mg/dL 70-110 7817569493) CREATININE (test code 0.81 mg/dL 0.5-1.04 = 5559230656) TOTAL BILI (test code 0.8 mg/dL 0.1-1.1 = 2494280676) CALCIUM (test code = 9.8 mg/dL 8.6-10.6 3328235475) T PROTEIN (test code = 7.7 g/dL 6.3-8.2 9237532672) ALBUMIN (test code = 4.8 g/dL 3.5-5 1399012943) ALK PHOS (test code = 72 U/L 34-122 2143662128) ALTv (test code = 23 U/L 5-35 1742-6) AST(SGOT) (test code = 26 U/L 13-40 6139796780) eGFR Calculation mL/min/1.73m2 (Non-) (test code = 9238366844) eGFR Calculation mL/min/1.73m2 () (test code = 3163332458) FRANKI (test code = FRANKI) Association of [...] or urine or abnormalities in imaging tests). [facility] WITH [id number] 17:05:00 Test Item Value Reference Range Interpretation Comments WBC (test code = See_Comment [Automated message] 6690-2) The system [employer] generated this result transmitted ref erence range: 4.30 - 1 1.10 10*3/?L. The re ference range was not u sed to interpret this result as normal/abnor mal. RBC (test code = See_Comment [Automated message] 789-8) The system [employer] generated this result transmitted ref erence range: [...] RDW-SD (test code 43.3 fL 39-49.9 = 07907-7) RDW-CV (test code 12.4 % 12-15.5 = 788-0) PLT (test code = See_Comment [Automated message] 777-3) The system [employer] generated this result transmitted ref erence range: 166 - 35 8 10*3/?L. The re ference range was not u sed to interpret this result as normal/abnor mal. MPV (test code = 10.3 fL 9.5-12.9 42165-1) NRBC/100 WBC (test See_Comment [Automat ed message] code = 2021855931) The syste m which generated this result transmitted ref erence range: 0.0 - 10 .0 /100 WBCs. The refer ence range was not u sed to interpret this result as normal/abnor mal. NRBC x10^3 (test <0.01 See_Comment [Automated message] code = 0763864073) The syste m which generated this result transmitted ref erence range: 10*3/?L. The reference range was not used to interpr et this result as normal/abnormal . GRAN MAT (NEUT) % 44.4 % (test code = 770-8) IMM GRAN % (test 0.20 % code = 5308588509) LYMPH % (test code 44.1 % = 736-9) MONO % (test code 9.3 % = 5905-5) EOS % (test code = 1.2 % 713-8) BASO % (test code 0.8 % = 706-2) GRAN MAT 2.15 10*3/uL 1.88-7.09 x10^3(ANC) (test code = 7033794506) IMM GRAN x10^3 <0.03 0-0.06 (test code = 2222110418) LYMPH x10^3 (test 2.14 10*3/uL 1.32-3.29 code = 731-0) MONO x10^3 (test 0.45 10*3/uL 0.33-0.92 code = 742-7) EOS x10^3 (test 0.06 10*3/uL 0.03-0.39 code = 711-2) BASO x10^3 (test 0.04 10*3/uL 0.01-0.07 code = 704-7) [facility]"
[2022-06-10] MEDS ORDERED: ONDANSETRON 4 MG/2 ML VIAL ONE (14:42)
[2022-06-10] MEDS ORDERED: MORPHINE 4 MG/ML SYR ONE ×3 (14:42→17:16)
[2022-06-10 14:51] LABS: Absolute Lymphocytes (CBC) 2.1 K/uL (0.7-4.9); Hematocrit 33.9 % (36.0-45.0); Lymphocytes % 27.8 % (15.3-44.8); MPV 7.9 fL (7.6-11.3); RBC Red Blood Cell Count 3.65 M/uL (3.86-4.86)
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
[2022-06-10 15:04] LABS: Potassium 3.3 mmol/L (3.5-5.1)
[2022-06-10] MEDS ORDERED: NA CHLORIDE 0.9% 1,000 ML ONE (15:33)
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
[2022-06-10] MEDS ORDERED: METHYLPREDNISOLONE 125 MG INJ ONE (16:41)
[2022-06-10 16:42] LABS: SARS-CoV-2 Antigen Rapid Res Negative (Negative)
[2022-06-10 17:27] VITALS: BP 155/85; O2SAT 98
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
== END 2022-06-10 17:23 | disposition short-term general hospital (02) ==
LOC: ER 13:58
DX: S02.31XA Fracture of orbital floor, right side, initial encounter for closed fracture (principal); H05.231 Hemorrhage of right orbit; V49.49XA Driver injured in collision with other motor vehicles in traffic accident, initial encounter; Z20.822 Contact with and (suspected) exposure to COVID-19; I10 Essential (primary) hypertension
CPT/HCPCS: 85025; 80048; 36415; 86900; 86850; 86901; 70450; 72125; 71260; 70486; 76377; 74177; 87811; Q9967; J7030; J2930; J2405

== ENCOUNTER 2022-06-24 12:41 | Emergency (ER) | payer SELFPAY ==
--- OUTSIDE RECORDS SUMMARY | 2022-06-24 12:44 | XMS REPORT | Continuity of Care Document ---
:[address] [facility] t Address [address] [place] [address] Care Team Providers Name Role Phone Harsha CALDERON, Aris Harrison Primary Care Physician [phone] JOSELUIS HYATT Attending Clinician Unavailable Joseluis Hyatt DO Attending Clinician LARISA ALLRED Attending Clinician Unavailable Brandi Chaney MD Attending Clinician BRANDI CHANEY Attending Clinician Unavailable KECIA RAMESH Admitting Clinician Unavailable BRANDI CHANEY Admitting Clinician Unavailable Payers Payer Name Policy Type Policy Number Effective Date Expiration Date Rosie BARAHONA - [id number] 2022 [employer]ETNA 00:00:00 [employer] COMMERCIAL [id number] 2022 OUT OF NETWORK 00:00:00 Problems Condition Condition Condition Status Onset Resolution Last Treating Co mments Source Name Details Category Date Date Treatment Clinician Date No known No known Disease Unive rs active active ity of problems problems [facility] Allergies, Adverse Reactions, Alerts Allergy Allergy Status Severity Reaction(s) Onset Inactive Treating Comm ents Source Name Type Date Date Clinician NO KNOWN Drug Active Univers ALLERGIE Class ity of S [facility] Social History Social Habit Start Date Stop Date Quantity Comments Source Exposure to 2022-06-07 2022-06-17 Not sure [facility] SARS-CoV-2 (event) 00:00:00 11:54:00 Medica l Branch Sex Ass[birth year] At [birth year] [facility] 00:00:00 00:00:00 Medical Branch Smoking Status Start Date Stop Date Source Tobacco smoking consumption [facility] Medical unknown Branch Medications Ordered Filled Start Stop Current Ordering Indication Dosage Frequency Signature Comments Components Source Medication Medication Date Date Medication? Clinician (SIG) Name Name HYDROcodone 2022- No 1{tbl} 1 tablet, Univers -acetaminop 06-17 Oral, ity of hen (NORCO) 19:45: 18:49 [place]325 mg 00 :00 dose, On Medica l tablet Wed06/17/22 Branc h tablet at 1345, Routine methylPREDN Yes [id number] Take by Univers ISolone 06-17 mouth ity of (MEDROL, 00:00: SEE-INSTRU Tavares as LOUANN,) 4 mg 00 CTIONS. Medica l tablets follow Branch package directions methocarbam Yes [id number] 500mg Take 1 Univers oL 500 mg -08 tablet by ity o f tablet 00:00: mouth in [place] 00 the Medical morning Branch and 1 tablet at noon and 1 tablet in the evening. HYDROcodone 2022- Yes 4647 .5{tbl} Take 0.5-1 Univers -acetaminop 06-17-16 tablets by i ty of [place] (NORCO) 00:00[place] 05:59 [place] 10-325 mg 00 :00 every 6 Medical tablet (six) Branch hours as needed for Pain (scale 7-10) for up to 7 days. Indication s: acute pain lidocaine 5 2022- Yes [id number] 1{patch Apply 1 Univers % (700 06-17 } Patch to ity of mg/patch) 00:00: 05:59 [place] patch 00 :00 once now Medical for 1 Branch dose. methocarbam 2022- No [id number] 500mg Take 1 Univers oL 500 mg 2-08 -08 tablet by ity of tablet 00:00: 00:00 mouth in [place] 00 :00 the Medical morning Branch and 1 tablet at noon and 1 tablet in the evening. Do all this for 5 days. Dose 2022-0 No Unknown 3-06 00:00: 00 Dose 2022-0 No Unknown 3-06 00:00: 00 Dose 2022-0 No Unknown 3-05 00:00: 00 Dose 2022-0 No Unknown 3-05 00:00: 00 Dose 2022-0 No Unknown 3-03 [...] 2021-0 No Unknown 2-27 00:00: 00 hydroxyzine 1-0 No 12mg HCl 25 mg 1-13 tablet 00:00: 00 ibuprofen 1-0 No 1mg 400 mg 1-13 tablet 00:00: 00 Trilipix 1-0 No 1mg 135 mg 1-13 capsule,del 00:00: ayed 00 release citalopram 2020-0 No 1mg 10 mg 1-13 tablet 00:00: 00 citalopram 2020-0 No 1mg 10 mg 9-24 tablet 00:00: 00 hydroxyzine 2020-0 No 12mg HCl 25 mg 9-24 tablet 00:00: 00 citalopram 2020-0 No 1mg 10 mg 7-09 tablet 00:00: 00 hydroxyzine 2020-0 No 12mg HCl 25 mg 7-09 tablet 00:00: 00 amlodipine 2018-0 No 1mg 5 mg tablet 9-12 00:00: 00 ranitidine 2018-0 No 1mg 150 mg 9-12 tablet 00:00: 00 No known No [facility] Ordered Immunization Filled Immunization Date Status Commen ts Source Name Name Tdap 2021-06-19 Completed 00:00:00 Influenza, seasonal, 2021-06-19 Completed inj 00:00:00 Moderna COVID-19 2020-08-29 Completed Vaccine 00:00:00 Moderna COVID-19 2020-08-01 Completed Vaccine 00:00:00 Vital Signs Vital Name Observation Time Observation Value Comments Source Body temperature 2022-06-17 17:56:00 36.89 Barbara [facility] Systolic blood 2022-06-17 17:55:00 156 mm[Hg] Univer sity [facility] Diastolic blood 2022-06-17 17:55:00 79 mm[Hg] Unive [facility] Heart rate 2022-06-17 17:55:00 72 /min [facility] Respiratory rate 2022-06-17 17:55:00 18 /min [facility] Body height 2022-06-17 17:55:00 152.4 cm [facility] Body weight 2022-06-17 17:55:00 58.968 kg [facility] BMI 2022-06-17 17:55:00 25.39 kg/m2 Universi ty [facility] Oxygen saturation in 2022-06-17 17:55:00 100 /min University of Arterial blood by [facility] Pulse oximetry Branch Systolic blood 2019-08-11 18:00:00 135 mm[Hg] Univer sity of pressure [facility] Diastolic blood 2019-08-11 18:00:00 70 mm[Hg] Unive rsity of pressure [facility] Heart rate 2019-08-11 18:00:00 64 /min Universi ty of [facility] Respiratory rate 2019-08-11 18:00:00 12 /min [facility] Oxygen saturation in 2019-08-11 18:00:00 100 /min [facility] Arterial blood by [facility] Pulse oximetry Branch Body temperature 2019-08-11 16:17:00 37.11 Barbara [facility] Body height 2019-08-11 16:17:00 152.4 cm Universi ty [facility] Body weight 2019-08-11 16:17:00 58.06 kg Universi ty [facility] BMI 2019-08-11 16:17:00 25.00 kg/m2 [facility] BP Systolic 2022-04-28 11:10:00 128 mm[Hg] BP [...] Date / Time Performing Clinician Source Performed NOTICE OF PRIVACY 2022-06-17 17:50:01 Doctor Unassigned, No Univ [facility] PRACTICES Name [facility] Branch CONSENT/REFUSAL FOR 2022-06-17 17:48:57 [facility], No [facility] Name [facility] XR CHEST 1 VW 2019-08-11 16:56:28 Brandi Chaney [facility] TROPONIN I 2019-08-11 16:44:00 Brandi Chaney [facility] COMP. METABOLIC PANEL 2019-08-11 16:44:00 Brandi Chaney [facility] ([id number] CBC WITH DIFFERENTIAL 2019-08-11 16:44:00 [facility] LEAD 2019-08-11 16:36:30 Brandi Chaney [facility] NOTICE OF PRIVACY 2019-08-11 16:10:29 Doctor Unassigned, No Univ ersity [facility] PRACTICES Name [facility] CONSENT/REFUSAL FOR 2019-08-11 16:10:12 Doctor Unassigned, No [facility] Name [facility] Plan of Care Planned Activity Planned Date Details Comments Source Goal Plan of Care Note [code = 93628-3] Goal Plan of Care Note [code = 24010-3] Goal Plan of Care Note [code = 49341-5] Goal Plan of Care Note [code = 06712-3] Goal Plan of Care Note [code = 22725-9] Goal Plan of Care Note [code = 88860-1] Goal Plan of Care Note [code = 12777-1] Goal Plan of Care Note [code = 66522-9] Goal Plan of Care Note [code = 30933-6] Goal Plan of Care Note [code = 20252-0] Goal Plan of Care Note [code = 13594-0] Goal Plan of Care Note [code = 06169-5] Goal Plan of Care Note [code = 49468-8] Goal Plan of Care Note [code = 85674-6] Goal Plan of Care Note [code = 31743-0] Goal Plan of Care Note [code = 18881-4] Goal Plan of Care Note [code = 66651-2] Goal Plan of Care Note [code = 11713-5] Goal Plan of Care Note [code = 76538-4] Goal Plan of Care Note [code = 25971-0] Goal Plan of Care Note [code = 39618-7] Goal Plan of Care Note [code = 39660-7] Goal Plan of Care Note [code = 86926-6] Goal Plan of Care Note [code = 82045-9] Goal Plan of Care Note [code = 66358-1] Goal Plan of Care Note [code = 35927-7] Goal Plan of Care Note [code = 67571-0] Encounters Start End Encounter Admission Attending Care Care Encounter Source Date/Time Date/Time Type Type Clinicians Facility Department ID 2022-06-11 Outpatient [facility] [id number] RI 09:30:54 [id number] [facility] 2022-06-17 2022-06-17 Emergency X [facility] ERT [id number] Univers 12:03:00 13:20:00 JOSELUIS gonsales [facility] 2022-06-17 2022-06-17 Emergency [facility] [id number] Univers 12:03:00 13:20:00 Joseluis LANTIGUACINDI [id number] i ty [facility] [id number] [facility] [id number] [address] 2022-06-12 2022-06-12 Outpatient [facility] [id number] Rafiq 13:39:02 13:39:02 [address] [place] 2022-06-10 2022-06-11 Emergency E BRIGIDA, [facility] [address] [facility] 17:09:00 00:56:00 LARISA 2022-05-05 2022-05-05 Outpatient [facility] [id number] Rafiq 10:34:45 10:34:45 [address] [place] 2022-04-28 2022-04-28 Outpatient [facility] [id number] Rafiq 11:06:07 11:06:07 [address] [place] 2022-04-28 2022-04-28 Outpatient [id number] 00:00:00 00:00:00 Visit [id number] 2019-08-11 2019-08-11 Emergency [facility] [id number] Univers 11:12:26 13:44:00 Brandi Sanz [id number] ity [facility] [id number] [facility] [id number] [address] 2019-08-11 2019-08-11 Emergency [facility] [id number] Univers 11:12:26 13:44:00 BRANDI wrendee [facility] Results Test Description Test Time Test Comments Results Result Comments Source VITAMIN B-12 2021-07-12 04:44:18 Test Item Value Reference Range Interpretation Comme nts VITAMIN B-12 (test code = 2840) >2000 PG/ML 200-950 H [id number] 03:17:13 Test Item Value Reference Range Interpretation Comments RPR RESULT (test NON-REACTIVE NON-REACTIVE code = 3501) RPR TITER (test NOT INDIC. NOT INDIC. UNLESS OTHE RWISE code = 3500) TITER INDICATED, ALL TESTING PERFORMED [facility] [employer] [address] [place] [address] 4 LABORATORY DIRE CTOR: SHAMA SORIANO M.D. CLIA NUMBER [id number] [place] [id number] CBC W/AUTO DIFF WITH [id number] 02:38:15 Test Item Value Reference Range Interpretation [...] RBCS 0.00 K/UL 0.00-0.11 (test code = 22569) VITAMIN [id number] 00:00:00 Test Item Value Reference Range Interpretation Comments VITAMIN B-12 (test code = 2840) >2000 PG/ML VITAMIN [id number] 00:00:00 Test Item Value Reference Range Interpretation Comments VITAMIN B-12 (test code = 2840) >2000 PG/ML VITAMIN [id number] 00:00:00 Test Item Value Reference Range Interpretation Comments VITAMIN B-12 (test code = 2840) >2000 PG/ML CBC W/AUTO [id number] 00:00:00 Test Item Value Reference Range Interpretation [...] NUCLEATED RBCS (test code = 0.00 K/UL 19789) CBC W/AUTO [id number] 00:00:00 Test Item Value Reference Range Interpretation [...] NUCLEATED RBCS (test code = 0.00 K/UL 43761) CBC W/AUTO [id number] 00:00:00 Test Item Value Reference Range Interpretation [...] NUCLEATED RBCS (test code = 0.00 K/UL 53065) [id number] 00:00:00 Test Item Value Reference Range Interpretation Comments RPR RESULT (test code = NON-REACTIVE 3501) RPR TITER (test code = 3500) NOT INDIC. TITER [id number] 00:00:00 Test Item Value Reference Range Interpretation Comments RPR RESULT (test code = NON-REACTIVE 3501) RPR TITER (test code = 3500) NOT INDIC. TITER [id number] 00:00:00 Test Item Value Reference Range Interpretation Comments RPR RESULT (test code = NON-REACTIVE 3501) RPR TITER (test code = 3500) NOT INDIC. TITER LIPID [id number] 03:57:42 Test Item Value Reference Range Interpretation [...] MOREINFORMATION , SEE CLIENT ANNOUNCE MENT AT [email or web address] /CalcLDL-C RISK RATIO LDL/HDL 1.56 RATIO <3.22 (test code = 2238) COMPREHENSIVE METABOLIC [id number] 03:57:42 Test Item Value Reference Range Interpretation Comments GLUCOSE (test code = 99 MG/DL 70-99 2216) BUN (test code = 15 MG/DL 6-20 2207) CREATININE (test 0.77 MG/DL 0.60-1.30 code = 2214) eGFR (2020 CKD-EPI) 92 >60 (test code = 64555) ML/MIN/1.73 CALC BUN/CREAT (test 19 RATIO 6-28 code = 2235) SODIUM (test code = 141 MEQ/L 167-650 0352) POTASSIUM (test code 4.5 MEQ/L 3.5-5.4 = 2227) CHLORIDE (test code 103 MEQ/L 95-107 = 221) CARBON DIOXIDE (test 24 MEQ/L 19-31 code = 2206) CALCIUM (test code = 10.0 MG/DL 8.5-10.5 2208) PROTEIN, TOTAL (test 7.8 G/DL 6.1-8.3 code = 2229) ALBUMIN (test code = 4.8 G/DL 3.5-5.2 2200) CALC GLOBULIN (test 3.0 G/DL 1.9-3.7 code = 2240) CALC A/G RATIO (test 1.6 RATIO 1.0-2.6 code = 2234) BILIRUBIN, TOTAL 0.5 MG/DL See_Comment [Automated message] (test code = 2207) The syste m which generated this result transmitted ref erence range: <=1.2. T he reference range was not used to int erpret this result as normal/abnormal . ALKALINE PHOSPHATASE 63 U/L 40-133 (test code = 2204) AST (test code = 20 U/L 9-40 2217) ALT (test code = 25 U/L 5-40 UNLESS OTH ERWISE 2219) INDICATED, ALL TESTING PERFORM ED ATCLINICAL PATH [facility], [facility]. [address] [facility] [place] [address] FOR[facility]LY [facility] DIRECTOR: SHAMA RAND M.D. CLIA NUMBER [id number] CAP ACCREDITATION N O. [id number] LIPID [id number] 00:00:00 Test Item Value Reference Range Interpretation Comments CHOLESTEROL (test code = 2210) 288 MG/DL TRIGLYCERIDES (test code = 2232) 122 MG/DL HDL CHOLESTEROL (test code = 2220) 103 MG/DL CALC LDL CHOL (test code = 2237) 161 MG/DL RISK RATIO LDL/HDL (test code = 1.56 RATIO 2238) LIPID [id number] 00:00:00 Test Item Value Reference Range Interpretation Comments CHOLESTEROL (test code = 2210) 288 MG/DL TRIGLYCERIDES (test code = 2232) 122 MG/DL HDL CHOLESTEROL (test code = 2220) 103 MG/DL CALC LDL CHOL (test code = 2237) 161 MG/DL RISK RATIO LDL/HDL (test code = 1.56 RATIO 2238) COMPREHENSIVE METABOLIC [id number] 00:00:00 Test Item Value Reference Range Interpretation Comments GLUCOSE (test code = 2217) 99 MG/DL BUN (test code = 2208) 15 MG/DL CREATININE (test code = 2214) 0.77 MG/DL eGFR (2020 CKD-EPI) (test code 92 ML/MIN/1.73 = 48383) CALC BUN/CREAT (test code = 19 RATIO [...] CALC GLOBULIN (test code = 3.0 G/DL 2239) CALC A/G RATIO (test code = 1.6 RATIO 2234) BILIRUBIN, TOTAL (test code = 0.5 MG/DL 2207) ALKALINE PHOSPHATASE (test 63 U/L code = 2204) AST (test code = 2218) 20 U/L ALT (test code = 2219) 25 U/L COMPREHENSIVE METABOLIC [id number] 00:00:00 Test Item Value Reference Range Interpretation Comments GLUCOSE (test code = 2217) 99 MG/DL BUN (test code = 2208) 15 MG/DL CREATININE (test code = 2214) 0.77 MG/DL eGFR (2020 CKD-EPI) (test code 92 ML/MIN/1.73 = 96427) CALC BUN/CREAT (test code = 19 RATIO [...] CALC GLOBULIN (test code = 3.0 G/DL 2239) CALC A/G RATIO (test code = 1.6 RATIO 4) BILIRUBIN, TOTAL (test code = 0.5 MG/DL 2206) ALKALINE PHOSPHATASE (test 63 U/L code = 2204) AST (test code = 2218) 20 U/L ALT (test code = 2219) 25 U/L CBC W/AUTO [id number] 00:00:00 Test Item Value Reference Range Interpretation [...] NUCLEATED RBCS (test code = 0.00 K/UL 19327) CBC W/AUTO [id number] 00:00:00 Test Item Value Reference Range Interpretation [...] NUCLEATED RBCS (test code = 0.00 K/UL 63321) CBC W/AUTO [id number] 00:00:00 Test Item Value Reference Range Interpretation [...] NUCLEATED RBCS (test code = 0.00 K/UL 30928) LIPID [id number] 00:00:00 Test Item Value Reference Range Interpretation Comments CHOLESTEROL (test code = 2210) 277 MG/DL TRIGLYCERIDES (test code = 2232) 95 MG/DL HDL CHOLESTEROL (test code = 2220) 109 MG/DL CALC LDL CHOL (test code = 2237) 148 MG/DL RISK RATIO LDL/HDL (test code = 1.36 RATIO 2238) LIPID [id number] 00:00:00 Test Item Value Reference Range Interpretation Comments CHOLESTEROL (test code = 2210) 277 MG/DL TRIGLYCERIDES (test code = 2232) 95 MG/DL HDL CHOLESTEROL (test code = 2220) 109 MG/DL CALC LDL CHOL (test code = 2237) 148 MG/DL RISK RATIO LDL/HDL (test code = 1.36 RATIO 2238) COMPREHENSIVE METABOLIC [id number] 00:00:00 Test Item Value Reference Range Interpretation Comments GLUCOSE (test code = 2217) 99 MG/DL BUN (test code = 2208) 15 MG/DL CREATININE (test code = 2214) 0.83 MG/DL eGFR AMER. (test code 93 ML/MIN/1.73 = 09558) eGFR NON- AMER. (test 80 ML/MIN/1.73 code = 74213) CALC BUN/CREAT (test code = 18 RATIO [...] ALT (test code = 2219) 44 U/L COMPREHENSIVE METABOLIC [id number] 00:00:00 Test Item Value Reference Range Interpretation Comments GLUCOSE (test code = 2217) 99 MG/DL BUN (test code = 2208) 15 MG/DL CREATININE (test code = 2214) 0.83 MG/DL eGFR AMER. (test code 93 ML/MIN/1.73 = 86255) eGFR NON- AMER. (test 80 ML/MIN/1.73 code = 02049) CALC BUN/CREAT (test code = 18 RATIO [...] ALT (test code = 2219) 44 U/L [id number] 00:00:00 Test Item Value Reference Range Interpretation Comments TSH, THIRD GENERATION (test code 1.930 UIU/ML = 2821) [id number] 00:00:00 Test Item Value Reference Range Interpretation Comments TSH, THIRD GENERATION (test code 1.930 UIU/ML = 2821) [id number] 00:00:00 Test Item Value Reference Range Interpretation Comments TSH, THIRD GENERATION (test code 1.930 UIU/ML = 2821) [id number] 00:00:00 Test Item Value Reference Range Interpretation Comments AMYLASE (test code = 2205) 39 U/L [id number] 00:00:00 Test Item Value Reference Range Interpretation Comments AMYLASE (test code = 220) 39 U/L [id number] 00:00:00 Test Item Value Reference Range Interpretation Comments LIPASE (test code = 2057) 32 U/L [id number] 00:00:00 Test Item Value Reference Range Interpretation Comments LIPASE (test code = 2057) 32 U/L [id number] 00:00:00 Test Item Value Reference Range Interpretation Comments LIPASE (test code = 8) 32 U/L SARS-CoV-2 (COVID-19) by RT-PCR (HIGH RISK)2020-01-09 00:00:00 Test Item Value Reference Range Interpretation Comments SARS-CoV-2 INTERPRETATION (test NEGATIVE code = 23359) SOURCE (test code = 71460) NOT SPECIFIED SARS-CoV-2 (COVID-19) by RT-PCR (HIGH RISK)2020-01-09 00:00:00 Test Item Value Reference Range Interpretation Comments SARS-CoV-2 INTERPRETATION (test NEGATIVE code = 39709) SOURCE (test code = 76748) NOT SPECIFIED HIV AB/AG COMBO RFLX [id number] 00:00:00 Test Item Value Reference Range Interpretation Comments HIV 1/2 4TH GEN, RFLX CONF (test NON-REACTIVE code = 3514) HIV AB/AG COMBO RFLX [id number] 00:00:00 Test Item Value Reference Range Interpretation Comments HIV 1/2 4TH GEN, RFLX CONF (test NON-REACTIVE code = 3514) [id number] 00:00:00 Test Item Value Reference Range Interpretation Comments RPR RESULT (test code = NON-REACTIVE 3501) RPR TITER (test code = 3500) NOT INDIC. TITER [id number] 00:00:00 Test Item Value Reference Range Interpretation Comments RPR RESULT (test code = NON-REACTIVE 3501) RPR TITER (test code = 3500) NOT INDIC. TITER [id number] 00:00:00 Test Item Value Reference Range Interpretation Comments RPR RESULT (test code = NON-REACTIVE 3501) RPR TITER (test code = 3500) NOT INDIC. TITER ACUTE HEPATITIS [id number] 00:00:00 Test Item Value Reference Range Interpretation Comments HEPATITIS A IgM (test code = NON-REACTIVE 69213) HEPATITIS B CORE IgM (test code NON-REACTIVE = 4644) HEPATITIS B SURF AG (test code = NON-REACTIVE 2739) HEPATITIS C ANTIBODY (test code NON-REACTIVE = 4675) INTERPRETATION HEPATITIS A: (NOTE) (test code = 2552) INTERPRETATION HEPATITIS B: (NOTE) (test code = 31521) INTERPRETATION HEPATITIS C: (NOTE) (test code = 79363) ACUTE HEPATITIS [id number] 00:00:00 Test Item Value Reference Range Interpretation Comments HEPATITIS A IgM (test code = NON-REACTIVE 45368) HEPATITIS B CORE IgM (test code NON-REACTIVE = 4644) HEPATITIS B SURF AG (test code = NON-REACTIVE 2739) HEPATITIS C ANTIBODY (test code NON-REACTIVE = 4675) INTERPRETATION HEPATITIS A: (NOTE) (test code = 2552) INTERPRETATION HEPATITIS B: (NOTE) (test code = 59692) INTERPRETATION HEPATITIS C: (NOTE) (test code = 63421) GC AND CHLAMYDIA AMPLIFIED, [id number] 00:00:00 Test Item Value Reference Range Interpretation Comments GONORRHEA, TMA (test code = 49431) NEGATIVE CHLAMYDIA, TMA (test code = 92484) NEGATIVE GC AND CHLAMYDIA AMPLIFIED, [id number] 00:00:00 Test Item Value Reference Range Interpretation Comments GONORRHEA, TMA (test code = 87445) NEGATIVE CHLAMYDIA, TMA (test code = 52773) NEGATIVE PAP TEST, THINPREP, [id number] 00:00:00 Test Item Value Reference Range Interpretation Comments SOURCE: (test code = Cervical/Endocervical 8001) SLIDES: (test code = 1 8011) LMP: (test code = 8021) 08/02/2019 SPECIMEN ADEQUACY: (test (NOTE) code = 92820) INTERPRETATION: (test NILM/NO EPITH. code = 98169) ABNORMALITY;SEE BELOW TELEGRAPHIC TYPEWRITER MECHANIC: (test Sarahi Nelson code = 8101) Jordan,CT(ASCP)IAC LOCATION: (test code = (NOTE) 48689) CPT: (test code = 8140) (NOTE) PAP TEST, THINPREP, [id number] 00:00:00 Test Item Value Reference Range Interpretation Comments SOURCE: (test code = Cervical/Endocervical 8001) SLIDES: (test code = 1 8011) LMP: (test code = 8021) 08/02/2019 SPECIMEN ADEQUACY: (test (NOTE) code = 01991) INTERPRETATION: (test NILM/NO EPITH. code = 10559) ABNORMALITY;SEE BELOW TELEGRAPHIC TYPEWRITER MECHANIC: (test Sarahi Nelson code = 8101) Jordan,CT(ASCP)IAC LOCATION: (test code = (NOTE) 36738) CPT: (test code = 8140) (NOTE) HPV HIGH RISK WITH GENOTYPE, [id number] 00:00:00 Test Item Value Reference Range Interpretation Comments HPV HIGH RISK INTERP (test code = NEGATIVE 50353) HPV 16 (test code = 85039) NEGATIVE HPV 18 (test code = 51939) NEGATIVE HPV, HR, OTHER GENOTYPES (test code NEGATIVE = 95669) HPV HIGH RISK WITH GENOTYPE, [id number] 00:00:00 Test Item Value Reference Range Interpretation Comments HPV HIGH RISK INTERP (test code = NEGATIVE 96933) HPV 16 (test code = 23877) NEGATIVE HPV 18 (test code = 00484) NEGATIVE HPV, HR, OTHER GENOTYPES (test code NEGATIVE = 49525) [facility] [id number] 17:36:00 Test Item Value Reference Range Interpretation Comments TROPONIN I (test 0.003 ng/mL See_Comment [Automated code = [id number]) message] The system which generated this result [...] ? Lab Interpretation Normal (test code = 59503-5) [facility] [id number] 17:31:29 No acute cardiopulmonary abnormality Preliminary Report [...] acute cardiopulmonary abnormalityPreliminary Report Dictated by Resident: Keri Alvares, Douglas Chester MD., have reviewed this study and agree with the abovereport.[facility]. METABOLIC PANEL (47994) 2019-08-11 17:25:00 Test Item Value Reference Range Interpretation Comments NA (test code = 140 mmol/L 135-145 3608985380) K (test code = 4.1 mmol/L 3.5-5 7306604861) CL (test code = 105 mmol/L 98-108 1795557850) CO2 TOTAL (test code = 25 mmol/L 23-31 7756005601) AGAP (test code = 2-16 9351910083) BUN (test code = 12 mg/dL 7-23 1415964482) GLUCOSE (test code = 98 mg/dL 70-110 6471453897) CREATININE (test code 0.81 mg/dL 0.5-1.04 = 7772785856) TOTAL BILI (test code 0.8 mg/dL 0.1-1.1 = 2827440893) CALCIUM (test code = 9.8 mg/dL 8.6-10.6 1386566356) T PROTEIN (test code = 7.7 g/dL 6.3-8.2 3957224169) ALBUMIN (test code = 4.8 g/dL 3.5-5 9115693485) ALK PHOS (test code = 72 U/L 34-122 9238857727) ALTv (test code = 23 U/L 5-35 1742-6) AST(SGOT) (test code = 26 U/L 13-40 [id number]) eGFR Calculation mL/min/1.73m2 (Non-) (test code = 9045410290) eGFR Calculation mL/min/1.73m2 () (test code = 8360845973) FRANKI (test code = FRANKI) Association of [...] or urine or abnormalities in imaging tests). [facility] WITH [id number] 17:05:00 Test Item Value Reference Range Interpretation Comments WBC (test code = See_Comment [Automated message] 6690-2) The system [employer] generated this result transmitted ref erence range: 4.30 - 1 1.10 10*3/?L. The re ference range was not u sed to interpret this result as normal/abnor mal. RBC (test code = See_Comment [Automated message] 789-8) The system [employer] generated this result transmitted ref erence range: [...] RDW-SD (test code 43.3 fL 39-49.9 = 55933-5) RDW-CV (test code 12.4 % 12-15.5 = 788-0) PLT (test code = See_Comment [Automated message] 777-3) The system whic h generated this result transmitted ref erence range: 166 - 35 8 10*3/?L. The re ference range was not u sed to interpret this result as normal/abnor mal. MPV (test code = 10.3 fL 9.5-12.9 52758-8) NRBC/100 WBC (test See_Comment [Automat ed message] code = 8381451731) The syste m which generated this result transmitted ref erence range: 0.0 - 10 .0 /100 WBCs. The refer ence range was not u sed to interpret this result as normal/abnor mal. NRBC x10^3 (test <0.01 See_Comment [Automated message] code = 9162292833) The syste m which generated this result transmitted ref erence range: 10*3/?L. The reference range was not used to interpr et this result as normal/abnormal . GRAN MAT (NEUT) % 44.4 % (test code = 770-8) IMM GRAN % (test 0.20 % code = 2755314250) LYMPH % (test code 44.1 % = 736-9) MONO % (test code 9.3 % = 5905-5) EOS % (test code = 1.2 % 713-8) BASO % (test code 0.8 % = 706-2) GRAN MAT 2.15 10*3/uL 1.88-7.09 x10^3(ANC) (test code = 1985763756) IMM GRAN x10^3 <0.03 0-0.06 (test code = 6748932229) LYMPH x10^3 (test 2.14 10*3/uL 1.32-3.29 code = 731-0) MONO x10^3 (test 0.45 10*3/uL 0.33-0.92 code = 742-7) EOS x10^3 (test 0.06 10*3/uL 0.03-0.39 code = 711-2) DAVISO x10^3 (test 0.04 10*3/uL 0.01-0.07 code = 704-7) [facility]"
[2022-06-24] MEDS ORDERED: KETOROLAC 30 MG/ML INJ ONE (14:45)
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
[2022-06-24 16:06] VITALS: TEMP 98.8; O2SAT 100
[2022-06-24 16:14] VITALS: BP 152/91
== END 2022-06-24 15:34 | disposition home or self-care (01) ==
LOC: ER 12:41
DX: S05.11XA Contusion of eyeball and orbital tissues, right eye, initial encounter (principal); Z98.890 Other specified postprocedural states